=== PATIENT | female | born 1950 | race Caucasian/White ===

== ENCOUNTER → 2018-02-05 15:20 | Outpatient (CLI) | payer MEDICARE, SELFPAY ==
[2018-02-05 18:15] LABS: Anion Gap 9 (5-15); BUN 19 mg/dL (7-18); Calcium,Total 8.8 mg/dL (8.5-10.1); Chloride 105 mmol/L (98-107); Cholesterol 159 mg/dL (200); Creatinine, Serum 0.82 mg/dL (0.55-1.02); EST Glomerular Filtration Rate 73 mL/min (>60); Est Glom Filt Rate - Afr Amer 89 mL/min (>60); Glucose 132 mg/dL (74-106); High Density Lipoprotein 56 mg/dL; Sodium Level 140 mmol/L (136-145); Thyroid Stim Hormone (TSH) 4.71 uIU/mL (0.358-3.74); Triglycerides 169 mg/dL; Very Low Density Lipoprotein 34 mg/dL (5-40)
== END ==
PROVIDERS: Family Provider Family Medicine; PCP Family Medicine; Visit Provider Family Medicine
DX: I10 Essential (primary) hypertension (principal)
CPT/HCPCS: 36415; 80048; 80061; 84443

== ENCOUNTER 2020-06-20 07:57 | Emergency (ER) | payer MEDICARE, SELFPAY ==
[2020-06-20] VITALS (23 sets, daily range): BP systolic 105–227; BP diastolic 49–117; PULSE 74–115; RESP 18–23; TEMP 36.3; O2SAT 90–100; BMI 37.7
--- NOTE | 2020-06-20 08:00 | EKG12_ITS ---
Test Reason : STROKE Blood Pressure : / mmHG Vent. Rate : 077 BPM Atrial Rate : 077 BPM P-R Int : 128 ms QRS Dur : 104 ms QT Int : 410 ms P-R-T Axes : 065 -11 015 degrees QTc Int : 463 ms Normal sinus rhythm Normal ECG Confirmed by CHRISTA MCCORMICK, KRISTI ([id number]), department editor VELMA JOY ([id number]) on 06/22/2020 11:02:20 AM Referred By: JAKOB Confirmed By:KRISTI GOODWIN MD
--- NOTE | 2020-06-20 08:00 | CT_ITS ---
We are attempting to reach an attending provider to discuss findings. An addendum with communication details will be sent when the communication is complete. STUDY: CT HEAD STROKE PROTOCOL W/O CONTRAST INJECTION REASON FOR EXAM: Female, 69 years old. CVA -- LEFT SIDE DEFICIT, SLURRED SPEECH RADIATION DOSAGE (If Supplied By Facility): CTDIvol = ( 44.99 ) mGy, DLP = ( 796.11 ) mGycm TECHNIQUE: Transaxial CT imaging of the brain was performed without administration of intravenous contrast material. Individualized dose optimization techniques were used for this CT. COMPARISON: No relevant priors. FINDINGS: A CT scan of the head was performed without IV contrast. The chele medulla and cerebellum appear to be normal. The cerebral hemispheres were examined. There is a hemorrhagic infarct involving the right thalamus and the posterior aspect of the right lentiform nucleus. The intracerebral hematoma at this location crosses from the right thalamus across the posterior limb of the right internal capsule into the posterior lentiform nucleus and measures about 2 cm in maximal diameter. The edema surrounding this infarct is causing some mild compression of the third ventricle but at this point no hydrocephalus is identified. The iliotibial skull are intact. The frontal ethmoid maxillary and sphenoid sinuses are normal. This result was called to Dr. PEDROZA by Dr. MEZA about 8:10 AM on 06/20/2020 CT/STROKE Brain/Head without Cont IMPRESSION: A 2 cm hemorrhagic infarct is noted involving the right basal ganglia as described above. Electronically Signed: Suhas Meza, at 8:17 EST Tel , Service support ,
--- NOTE | 2020-06-20 08:06 | ED.DCSUM_ITS ---
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 She got back into bed and noticed tingling in the left side of her body. She then noticed that she could not move her left arm or leg. EMS was called. They note slurred speech. Patient denies any visual changes. She denies any symptoms on the right side of her body. She states she is not on any blood thinners. Blood pressure for EMS 196/87. Past Medical History - Allergies and Home Meds Allergies/Adverse Reactions: Allergies Penicillins Allergy (Verified 06/15/15 15:47) Hives SODIUM PENTOTHAL Allergy (Uncoded 06/15/15 15:47) Other Primary Care Physician: Shaan Sharpe MD [Primary Care Provider] - Past Medical History: - - HYPERTENSIOPN Surgical History: noncontributory Lives: Spouse/ Significant Other Smoking Status: Never smoker Drugs: None Review of Systems General: Denies: Chills, Fever, Sweats Eyes: Denies: Visual changes - bilaterally, Diplopia ENT: Denies: Rhinorrhea, Sore throat Cardiovascular: Denies: Chest pain, Palpitations Respiratory: Denies: Dyspnea, Cough, Dyspnea on exertion Gastrointestinal: Denies: Abdominal pain, Nausea, Vomiting, Diarrhea, Melena, Hematochezia Genitourinary: Denies: Dysuria, Hematuria, Frequency Musculoskeletal: Denies: Back pain, Extremity Pain Skin: Denies: Rash, Wounds Neurological: Reports: Headache, Weakness, Parasthesia, Numbness STROKE Inital Vital Signs reviewed: Yes - NIHSS Initial 1a Level of Consciousness: 0 1b LOC Questions (Score 2 if aphasic/stupor): 0 1c LOC Commands (Only score 1st attempt): 0 2 Best Gaze (If aphasic, use reflexive mvmts.): 0 3 Visual: 0 4 Facial Palsy: 1 5 Motor Arm Right (UN = amputation/fusion): 0 5 Motor Arm Left: UN 6 Motor Leg Right: 0 6 Motor Leg Left: UN 7 Limb ataxia (Only + if out of proportion): 0 8 Sensory (Aphasia/stupor=0 or 1, coma=2): 2 9 Best Language: 0 10 Dysarthria (mute, coma=2, intubated=UN): 2 11 Extinction and Inattention (only scored if +): 2 Total Score: 7 General: Well nourished, Well developed Head: Normocephalic, Atraumatic Eyes: Perrl, EOMI ENT: Moist mucous membranes, No rhinorrhea Neck: Supple, Nontender Cardiovascular: Regular rate, Regular rhythm, No murmurs Respiratory: No distress, CTA bilaterally, Chest nontender Abdomen: Soft, Nontender, Nondistended, Normal bowel sounds Back: Nontender, Normal Inspection Extremities: Nontender, No edema Skin: Normal color, No rash Neurological: Alert Psychological: Normal affect Diagnostic/Tx/Re-eval Clinical Impression(s) from Imaging Studies Brain CT 06/20/20 08:00 IMPRESSION: A 2 cm hemorrhagic infarct is noted involving the right basal ganglia as described above. Electronically Signed: Suhas Meza at 8:17 EST Tel , Service support , ADDENDUM: 06/20/20 0824 IMPRESSION: A 2 cm hemorrhagic infarct is noted involving the right basal ganglia as described above. N.B. : The above information has been verbally conveyed by Suhas Meza to MICHAEL, on 06/20/2020 08:17:52 (ET). Electronically Signed: Suhas Meza at 8:17 EST Tel , Service support , Chest X-Ray 06/20/20 08:45 IMPRESSION: 1. An endotracheal tube and NG tube noted in place in good position. 2. Apparent widening of the superior mediastinum. This is of uncertain etiology and could be due to suprahilar lymphadenopathy or a right suprahilar mass lesion and a CT scan of the chest with IV contrast is recommended for further evaluation. Electronically Signed: Shuas Meza at 9:10 EST Tel , Service support , Laboratory Last Values WBC 11.7 K/mm3 (4.4-11.0) H 06/20/20 08:05 RBC 4.99 M/mm3 (4.2-5.4) 06/20/20 08:05 Hgb 15.3 g/dL (12.0-15.0) H 06/20/20 08:05 Hct 45.5 % (37-47) 06/20/20 08:05 MCV 91.2 fL (81-99) 06/20/20 08:05 MCH 30.7 pg (27.0-32.0) 06/20/20 08:05 MCHC 33.6 g/dL (32-36) 06/20/20 08:05 RDW Std Deviation 41.4 fl (35.1-43.9) 06/20/20 08:05 RDW Coeff of Edi 12.6 % (11.6-14.6) 06/20/20 08:05 Plt Count 263 K/mm3 (150-450) 06/20/20 08:05 MPV 9.3 fl (6.2-12.0) 06/20/20 08:05 Immature Gran % (Auto) 0.400 % (0.0-0.9) 06/20/20 08:05 Neut % (Auto) 65.1 % (47-70) 06/20/20 08:05 Lymph % (Auto) 23.7 % (19-41) 06/20/20 08:05 Forrest % (Auto) 8.2 % (0-10) 06/20/20 08:05 Eos % (Auto) 2.0 % (0-5) 06/20/20 08:05 Baso % (Auto) 0.6 % (0-1) 06/20/20 08:05 Absolute Neuts (auto) 7.6 X10^3/uL (2.0-7.7) 06/20/20 08:05 Absolute Lymphs (auto) 2.77 X10^3/uL (0.83-4.51) 06/20/20 08:05 Nucleated RBC % 0 % (0-5) 06/20/20 08:05 PT 13.5 SECONDS (11.7-14.9) 06/20/20 08:05 INR 1.1 06/20/20 08:05 APTT 27.8 Seconds (24.1-36.2) 06/20/20 08:05 Sodium 139 mmol/L (136-145) 06/20/20 08:05 Potassium 3.8 mmol/L (3.5-5.1) 06/20/20 08:05 Chloride 106 mmol/L (98-107) 06/20/20 08:05 Carbon Dioxide 27.0 mmol/L (21.0-32.0) 06/20/20 08:05 Anion Gap 6 (5-15) 06/20/20 08:05 BUN 16 mg/dL (7-18) 06/20/20 08:05 Creatinine 0.90 mg/dL (0.55-1.02) 06/20/20 08:05 Estim Creat Clear Calc 55.23 ml/min 06/20/20 08:05 Est GFR (MDRD) Af Amer 80 mL/min (>60) 06/20/20 08:05 Est GFR (MDRD) Non-Af 66 mL/min (>60) 06/20/20 08:05 BUN/Creatinine Ratio 17.8 RATIO (10-20) 06/20/20 08:05 Glucose 270 mg/dL (74-106) H 06/20/20 08:05 Calcium 8.9 mg/dL (8.5-10.1) 06/20/20 08:05 Troponin I < 0.015 ng/mL (<0.045) 06/20/20 08:05 - Medical Decision Making Stroke Team Activated: Yes Reviewed Inclusion/Exclusion criteria: Yes Was Patient considered for Endovascular Intervention?: No IV Alteplase (t-PA) Administered: No No contraindications for IV Alteplase (t-PA) administration.: No - ICH Alteplase (t-PA) risks, benefits, alternative discussed: No I personally met the ambulance in the ambulance bay. Patient was taken directly to the CT scan where a 2 cm hemorrhagic infarct involving the right basal ganglia was noted. Patient was brought back to the room. His blood pressure increased to approximately 240 systolic. She was placed on a nicardipine drip. I spoke with [facility] was accepted. We looked into flying the patient there but due to incoming weather they were unable to fly. I called [facility] and awaiting acceptance. In the interim the patient began to deteriorate. She is less alert. She has had vomiting. She is having to cough significantly to clear secretions in her throat. Because of this and the need for interhospital transport decision was made to intubate the patient for airway safety. Patient received 20 of etomidate and 100 mg succinylcholine. An 8-0 endotracheal tube was placed on the first attempt without any difficulty. Placement confirmed. The patient will be kept sedated on propofol. I spoke with the on-call neurosurgeon. I then got acceptance to the MICU. Helicopter has been called and we are awaiting their arrival. Nursing has been titrating the Cardene and propofol. Critical care time (excluding procedures): 30-74 minutes - 35 MINUTES ED Disposition - Plan for ED Patient: Disposition: [facility] Diagnosis: Acute intracranial hemorrhage, Respiratory failure requiring intubation
[2020-06-20] MEDS: Ondansetron 4 MG/2 ML Vial IV (08:09)
[2020-06-20 08:19] LABS: Absolute Lymphocyte Count 2.77 X10^3/uL (0.83-4.51); Absolute Neutrophil Count 7.6 X10^3/uL (2.0-7.7); Basophil# 0.07 X10^3/uL; Basophil% 0.6 % (0-1); Eosinophil# 0.23 X10^3/uL; Hematocrit 45.5 % (37-47); Hemoglobin 15.3 g/dL (12.0-15.0); Lymphocyte # 2.77 X10^3/ul (4.0); Lymphocyte % 23.7 % (19-41); Mean Corp Hgb Conc 33.6 g/dL (32-36); Mean Corpuscular Hgb 30.7 pg (27.0-32.0); Mean Corpuscular Volume 91.2 fL (81-99); Mean Platelet Vol. 9.3 fl (6.2-12.0); Monocyte# 0.96 X10^3/uL; Monocyte% 8.2 % (0-10); NRBC Flagged by Analyzer 0 % (0-5); Neutrophil # 7.61 X10^3/uL (2.7-7.7); Neutrophil % 65.1 % (47-70); Platelet Count 263 K/mm3 (150-450); RBC Distribution Width CV 12.6 % (11.6-14.6); RBC Distribution Width SD 41.4 fl (35.1-43.9); Red Blood Count 4.99 M/mm3 (4.2-5.4); White Blood Count 11.7 K/mm3 (4.4-11.0)
[2020-06-20] MEDS: Etomidate 20 MG/10 ML Vial IV (08:35)
[2020-06-20] MEDS: Succinylcholine Chloride 200 MG/10 ML Vial 100 MG IV (08:36)
[2020-06-20 08:39] LABS: Anion Gap 6 (5-15); BUN 16 mg/dL (7-18); BUN/Creat Ratio 17.8 RATIO (10-20); Calcium,Total 8.9 mg/dL (8.5-10.1); Chloride 106 mmol/L (98-107); EST Glomerular Filtration Rate 66 mL/min (>60); Est Glom Filt Rate - Afr Amer 80 mL/min (>60); Estimated Creatinine Clearance 55.23 ml/min; Glucose 270 mg/dL (74-106); Potassium 3.8 mmol/L (3.5-5.1); Sodium Level 139 mmol/L (136-145)
[2020-06-20] MEDS: Propofol 10MG/Ml 1,000 MG/100 ML Bottle 6.4 MG CONT INF (08:43)
--- NOTE | 2020-06-20 08:45 | RAD_ITS ---
EXAM DESCRIPTION: PORTABLE AP CHEST CLINICAL HISTORY: 69 years Female, ETT PLACEMENT ETT PLACEMENT COMPARISON: None FINDINGS: Endotracheal tube and NG tube are noted in place in good position. The rest of the thorax is intact. The heart appears to be within normal limits. There appears to be widening of the superior mediastinum particularly pronounced on the right. An adjacent pulmonary mass or lesion in the right suprahilar region cannot be completely excluded. For this reason a CT scan of the chest with IV contrast is recommended for additional evaluation.. The left lung is normal in the right lung base appear to be normal. RAD/CXR for Line Placement IMPRESSION: 1. An endotracheal tube and NG tube noted in place in good position. 2. Apparent widening of the superior mediastinum. This is of uncertain etiology and could be due to suprahilar lymphadenopathy or a right suprahilar mass lesion and a CT scan of the chest with IV contrast is recommended for further evaluation. Electronically Signed: Suhas Meza, at 9:10 EST Tel , Service support ,
--- NOTE | 2020-06-20 08:45 | RAD_ITS ---
INDICATION: OG PLACEMENT EXAMINATION/TECHNIQUE: X-RAY - XR Abdomen 1 View COMPARISON: Recent chest obtained on 06/20/2020 FINDINGS: An AP portable abdomen x-ray was performed showing an endotracheal tube in place and NG tube in place projecting over the body of the stomach. Only the superior half of the upper abdomen was evaluated which appears to be normal. RAD/Abdomen Single View IMPRESSION: An NG tube noted in place with its tip in the body of the stomach. Electronically Signed: Suhas Meza, at 10:00 EST Tel , Service support ,
[2020-06-20] MEDS: Midazolam 5 MG/ML Syringe IV (08:48)
--- NOTE | 2020-06-20 08:50 | NURSING ---
CALLED [facility]. PATIENT ACCEPTED AT [facility]
[2020-06-20 08:52] LABS: International Normalized Ratio 1.1; Prothrombin Time (Protime)PT. 13.5 SECONDS (11.7-14.9)
[2020-06-20 08:53] LABS: Partial Thromboplast Time 27.8 Seconds (24.1-36.2)
--- NOTE | 2020-06-20 08:58 | NURSING ---
[facility] ICU T2 [id number] NURSE TO NURSE [phone]
--- NOTE | 2020-06-20 09:26 | ED.RN ---
Per Dr. Sheets propofol increased Q5 min d/t agitation/restlessness.
--- NOTE | 2020-06-20 09:33 | NURSING ---
JULIETH BRUNO, CALLED. UPDATED THAT PATIENT IS GOING TO [facility]
== END 2020-06-20 09:43 | disposition short-term general hospital (02) ==
PROVIDERS: Emergency Provider Emergency Medicine; PCP Family Medicine
DX: I62.9 Nontraumatic intracranial hemorrhage, unspecified (principal); J96.90 Respiratory failure, unspecified, unspecified whether with hypoxia or hypercapnia; R47.81 Slurred speech; R20.2 Paresthesia of skin; I10 Essential (primary) hypertension; R29.707 NIHSS score 7
CPT/HCPCS: 31500; 31720; 51702; 70450; 71045; 74018; 80048; 84484; 85025; 85610; 85730; 87426; 93005; 94002; 96365; 96366; 96367; 96375; 99251; 99285; J7030; A4216; G0463; J0330; J2405

== ENCOUNTER 2020-07-03 18:06 | Inpatient (IN) | payer MEDICARE, MEDICAID, SELFPAY ==
[2020-06-20 09:07] VITALS: BMI 37.7
[2020-07-03 18:32] VITALS: BP 124/78; PULSE 67; RESP 17; TEMP 36.7; O2SAT 93
[2020-07-03 18:46] VITALS: BMI 38.9
[2020-07-03 18:52] VITALS: BMI 38.9
[2020-07-03 20:00] VITALS: BP 118/74; PULSE 59; RESP 18; TEMP 36.7; O2SAT 93
[2020-07-03 20:30] LABS: Bedside Glucose 136 mg/dL (70-110)
[2020-07-03] MEDS: Heparin Injection (Vial) 5,000 UNIT/ML VIAL 5000 UNIT SC (20:41)
[2020-07-03] MEDS: Acetaminophen 325 MG Tablet 650 MG PO (20:41)
[2020-07-03] MEDS: traZODone 100 MG Tablet PO (20:41)
[2020-07-03] MEDS: Atorvastatin Calcium 40 MG Tablet PO (20:41)
[2020-07-03] MEDS: MELATONIN 3 MG TABLET 6 MG PO (20:54)
[2020-07-03] MEDS: NYSTATIN 500,000 UNIT/5 ML UDC 500000 UNIT PO (20:54)
--- NOTE | 2020-07-04 00:14 | NURSING ---
staff to check on pt during rounds and found pts SPO2 at 87% on ra. O2 at 2l/m placed on pt and SPO2 increased to 95%, staff also observed pt to have 5-10 seconds of apnea as well
[2020-07-04] MEDS: Pantoprazole Sodium 40 MG Tablet PO (05:03)
[2020-07-04] MEDS: Acetaminophen 325 MG Tablet 650 MG PO (05:04)
[2020-07-04] MEDS: Heparin Injection (Vial) 5,000 UNIT/ML VIAL 5000 UNIT SC (05:04)
[2020-07-04 06:41] LABS: Bedside Glucose 102 mg/dL (70-110)
[2020-07-04 07:54] VITALS: BP 108/71; PULSE 64; RESP 18; TEMP 36.7; O2SAT 95
[2020-07-04] MEDS: amLODIPine 10 MG Tablet PO (07:56)
[2020-07-04] MEDS: Carvedilol 25 MG Tablet PO ×2 (07:56→17:51)
[2020-07-04] MEDS: Lisinopril 40 MG Tablet PO (07:56)
[2020-07-04] MEDS: hydroCHLOROthiazide 12.5mg 12.5 MG PO (07:56)
[2020-07-04] MEDS: NYSTATIN 500,000 UNIT/5 ML UDC 500000 UNIT PO ×2 (07:57→20:54)
[2020-07-04] MEDS: Insulin Lispro 100 UNIT/ML INSULN.PEN 6 UNIT SC ×3 (07:59→17:51)
--- NOTE | 2020-07-04 09:00 | PCM.HP.STD ---
Problem List (1) Hemorrhagic cerebrovascular accident (CVA) Status: Acute Comment: 06/20/2020 2.5 cm bleed in the right basal ganglia (2) Hypertension Status: Chronic (3) Hypothyroidism Status: Chronic Comment: not on any medication. She tells me she had a resection of a lump on her thyroid and is was benign. (4) Obesity (BMI 30-39.9) Status: Chronic (5) Dysphagia Status: Acute (6) Hemiparesis of left nondominant side Status: Acute Qualifiers: Hemiparesis etiology: late effect of cerebrovascular disease Cerebrovascular disease type: nontraumatic intracerebral hemorrhage Qualified Code(s): I69.154 - Hemiplegia and hemiparesis following nontraumatic intracerebral hemorrhage affecting left non-dominant side (7) Diabetes mellitus type 2 in obese Status: Chronic Comment: This is a new diagnosis. Hemoglobin A1c at [facility] was 10.2. (8) LUANNE (obstructive sleep apnea) Status: Suspected Comment: wears O2 at night at 2 LPM which was started at [facility] (9) Thrush Status: Acute History of Present Illness Date of Admission: 07/03/20 Chief Complaint: Physical debility secondary to hemorrhagic CVA on 06/20/2020 with left hemiparesis, dysphagia and dysarthria. Marimar Slaughter is a 69 year old F with a past medical history of hypertension, hypothyroidism and obesity who presented to the emergency department at [facility] on 06/20/2020 complaining of paresthesias of her left side followed by severe weakness of the left arm and leg. Blood pressure at the time EMS arrived was 196/87. Noncontrasted CT brain showed a 2 cm hemorrhagic infarct involving the right basal ganglia. She was transferred emergently to [facility] to be evaluated by neurosurgery. While at [facility] she was diagnosed with dyslipidemia and diabetes mellitus type 2. Diabetes is a new diagnosis and her hemoglobin A1c was 10.2. Her NIH at [facility] was 7 and upon arrival at [facility] her NIH was 8. She did not require neurosurgical intervention. she was transferred to [facility] acute inpt rehab on 07/03/20 for > 3 hours of therapy daily to restore her at or near her prior level of function/independence. She lives with her significant other in a two-story home plus basement. There are no steps to enter her home. Her bedroom is on the second floor. She has a walk-in shower with grab bars on the second floor. Prior to the CVA she was independent with self-care/ADLs and was driving. All records from [facility] were reviewed. The medication list was reviewed. Records were requested from Dr. Sharpe who is her primary care physician. She sees Dr. Sharpe once a year Echocardiogram done at [facility] showed a normal ejection fraction with no regional wall motion abnormalities and no significant valvular heart disease. It was a difficult study. She is on multiple agents for blood pressure control including amlodipine 10 mg daily, carvedilol 25 mg twice daily, lisinopril 40 mg daily and hydrochlorothiazide 12.5 mg daily. Occupational Therapy today reported difficulty arousing her. She received 100 mg of trazodone at at bedtime and Trazodone Past Medical History Past Medical History (Chronic Problems): Chronic Problems Hypertension (Chronic) Hypothyroidism (Chronic) not on any medication. She tells me she had a resection of a lump on her thyroid and is was benign. Obesity (BMI 30-39.9) (Chronic) Diabetes mellitus type 2 in obese (Chronic) This is a new diagnosis. Hemoglobin A1c at [facility] was 10.2. Allergies Penicillins Allergy (Verified 06/15/15 15:47) Hives SODIUM PENTOTHAL Allergy (Uncoded 06/15/15 15:47) Other Home Medications: Ambulatory Orders Medication Instructions Recorded Benazepril HCl 40 mg PO DAILY 06/15/15 Oxycodone HCl/Acetaminophen 1 - 2 tablet PO Q4H PRN PRN #20 06/15/15 [Percocet 5/325] tablet Amlodipine Besylate [Norvasc] 10 mg PO DAILY 07/03/20 Atorvastatin Calcium [Lipitor] 40 mg PO QHS 07/03/20 Carvedilol [Coreg] 25 mg PO BID 07/03/20 Heparin Sodium,Porcine/Pf [Heparin 5,000 unit SQ Q8 07/03/20 5 Unit/5 ml (1/ml) Syr] Hydrochlorothiazide 12.5 mg PO DAILY 07/03/20 Insulin Glargine,Hum.rec.anlog 25 unit SQ QHS 07/03/20 [Lantus] Insulin Lispro [Humalog] 6 unit SQ TID 07/03/20 Lisinopril 40 mg PO DAILY 07/03/20 Melatonin/Pyridoxine HCl (B6) 1 ea PO QHS 07/03/20 [Melatonin 3 mg Tablet] Pantoprazole Sodium [Protonix] 40 mg PO 0600 07/03/20 traZODone [Desyrel] 100 mg PO QHS 07/03/20 Surgical History: total knee arthroplasty - On the right, - - Resection of thyroid nodule, right carpal tunnel release Psychiatric History: No pertinent psych hx 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 Denies: Chills, Fever, Weight Change Eyes: Reports: Vision Change - when she opens her eyes she sees pink and purple. Denies: Eyelid Inflammation HEENT: Reports: Head Aches - occasional...this predates the CVA. Denies: Hearing Changes, Post Nasal Drip, Sinus Congestion, Sinus Drainage, Sore Throat Cardiovascular: Reports: - - denies being told she snores. She has never had a sleep study. Denies: Chest Pain, Claudication, Edema, Orthopnea, Palpitations, Paroxysmal Noc. Dyspnea Respiratory: Denies: Cough, Pleuritic Pain, Shortness of Breath, Shortness of breath at rest, Sputum production, Wheezing Gastrointestinal: Denies: Abdominal Pain, Diarrhea, Dyspepsia, Nausea, Vomiting Genitourinary: Denies: Dysuria Musculoskeletal: Denies: Joint Pain, Joint Tenderness Skin: Reports: Dryness. Denies: Jaundice, Pruritis, Rash, Skin Changes, Wounds Neurological: Reports: Balance problems, Change in Speech, Slurred speech. Denies: Confusion, Difficulty swallowing, Focal weakness, Incoordination, Numbness, Tingling, Tremor, Seizures Psychiatric: Denies: Anxiety, Depression, Homicidal Ideations, Suicidal Ideations Endocrine: Denies: Change in Body Habitus Hematologic/ Lymphatic: Denies: Easy Bruising, Easy Bleeding, Hx of blood clot VTE Information - Inpt Only VTE Present on Admission: No VTE Mechan Device Prophylaxis: Knee High DION Hose - pt refused VTE Pharm Prophylaxis ordered?: Yes Patient Problems: Active and Suspected Problems Hemorrhagic cerebrovascular accident (CVA) (Acute) 06/20/2020 2.5 cm bleed in the right basal ganglia Dysphagia (Acute) Hemiparesis of left nondominant side (Acute) LUANNE (obstructive sleep apnea) (Suspected) wears O2 at night at 2 LPM which was started at [facility] (Acute) - Physical Exam Vitals/I&O's: Vital Signs Temp Pulse Resp BP Pulse Ox 98.0 F 64 18 108/71 95 07/04/20 07:54 07/04/20 07:54 07/04/20 07:54 07/04/20 07:54 07/04/20 07:54 Oxygen Flow Rate (L/min) 2 Oxygen Delivery Method Nasal Cannula Weight: 234 lb Body Mass Index (BMI) 38.9 Finger Stick Blood Glucose 193 Intake and Output for Last 24 Hours 07/02/20 07/03/20 07/04/20 23:59 23:59 23:59 Intake Total / 100 / 100 Output Total Balance 59 100 / 100 General: Alert, Oriented x3, Cooperative, No apparent distress, Well developed, Well nourished HEENT: Atraumatic, EOMI, Normocephalic, - - Pupils are equal round reactive to light Oral: Dry Mucosa Neck: Supple, No JVD, Negative Carotid Bruits, Trachea Midline, - - Carotids have brisk upstroke with good pulse volume. Lungs: Clear to auscultation, Normal air movement, No rhonchi, No wheeze, No rales Cardiovascular: Regular rate, Regular Rhythm, Normal S1, Normal S2, No murmurs, No rub noted, No Gallop Abdomen: Bowel Sounds Present, Soft, Non Tender, Non-Distended, - - No guarding with palpation Extremities: No clubbing, No cyanosis, No edema, Capillary Refill Less than 3 Seconds, No Calf Tenderness Skin: No rashes, No breakdown Musculoskeletal: No Tenderness to Palpation of Joints or Extremities, No Muscle Wasting Neurological: - - see NIHSS in the A/P section Psych/Mental Status: Normal Affect, Appropriate Laboratory Results 07/03/20 20:24: POC Glucose 136 H 07/04/20 06:27: POC Glucose 102 Current Medications Acetaminophen (Acetaminophen 325 Mg Tablet) 650 mg PO Q4H PRN PRN PRN Reason: Pain 1-10 or Fever Last Admin: 07/04/20 05:04 Dose: 650 mg Documented by: Amlodipine Besylate (Amlodipine 10 Mg Tablet) 10 mg PO DAILY [facility] Last Admin: 07/04/20 07:56 Dose: 10 mg Documented by: Atorvastatin Calcium (Atorvastatin Calcium 40 Mg Tablet) 40 mg PO QHS [facility] Last Admin: 07/03/20 20:41 Dose: 40 mg Documented by: Bisacodyl (Bisacodyl 10 Mg Suppository) 10 mg RECTAL .PRN X 1 PRN PRN Reason: Constipation Carvedilol (Carvedilol 25 Mg Tablet) 25 mg PO BIDCM [facility] Last Admin: 07/04/20 07:56 Dose: 25 mg Documented by: Heparin Sodium (Porcine) (Heparin Injection (Vial) 5,000 Unit/Ml Vial) 5,000 unit SC Q8 [facility] Last Admin: 07/04/20 05:04 Dose: 5,000 unit Documented by: Hydrochlorothiazide (Hydrochlorothiazide 12.5mg) 12.5 mg PO DAILY [facility] Last Admin: 07/04/20 07:56 Dose: 12.5 mg Documented by: Insulin Glargine (Insulin Glargine 100 Units/Ml Pen) 25 units SC QHS [facility] Last Admin: 07/03/20 20:42 Dose: 25 u Documented by: Insulin Human Lispro (Insulin Lispro 100 Unit/Ml Insuln.Pen) 6 unit SC TIDCM [facility] Last Admin: 07/04/20 07:59 Dose: 6 u Documented by: Lisinopril (Lisinopril 40 Mg Tablet) 40 mg PO DAILY [facility] Last Admin: 07/04/20 07:56 Dose: 40 mg Documented by: Magnesium Hydroxide (Magnesium Hydroxide 30 Ml Udc) 30 ml PO .PRN X 1 PRN PRN Reason: Constipation Melatonin (Melatonin 3 Mg Tablet) 6 mg PO QHS [facility] Last Admin: 07/03/20 20:54 Dose: 6 mg Documented by: Non-Formulary Medication (Insulin Lispro) 0 - 6 unit SQ TID [facility] Nystatin (Nystatin 500,000 Unit/5 Ml Udc) 500,000 unit PO BID [facility] Last Admin: 07/04/20 07:57 Dose: 500,000 unit Documented by: Pantoprazole Sodium (Pantoprazole Sodium 40 Mg Tablet) 40 mg PO 0600 [facility] Last Admin: 07/04/20 05:03 Dose: 40 mg Documented by: Trazodone HCl (Trazodone 100 Mg Tablet) 100 mg PO QHS [facility] Last Admin: 07/03/20 20:41 Dose: 100 mg Documented by: Assessment/Plan All Active Problems Hemorrhagic cerebrovascular accident (CVA) (Acute) Dysphagia (Acute) Hemiparesis of left nondominant side (Acute) Thrush (Acute) Impressions 1. Physical debility secondary to hemorrhagic right basal ganglion CVA on 06/20/2020 with dysphagia, dysarthria, left hemiparesis. 2. Diabetes mellitus type 2 in obese-this is a new diagnosis for this patient 3. Hypertension 4. History of hypothyroidism -not on supplements 5. Morbid obesity 6. Dyslipidemia 7. Hypocalcemia 8. Thrush 9. Sleep disordered breathing? on oxygen at night. she denies ever having had a sleep study. STOP BANG score puts her at high risk for LUANNE 10. Left hemiparesis with left side neglect 11. Dysphagia - SEVERE 12. Dysarthria 13. Insomnia-on trazodone and melatonin 14. Suspected depression PLAN PT for gait stability OT for ADL's ST for evaluation Analgesics as needed Bowel protocol Fall precautions Assess for Anxiety/Depression GI prophylaxis with pantoprazole 40 mg p.o. daily DVT prophylaxis with enoxaparin 40 mg subcu daily Follow up with PCP and neurology following DC from IP Rehab AM lab including CMP, CBC, Mag, lipid panel and Phos DC the HCTZ - oral intake is poor and she is on pudding thick liquids. Decrease trazodone to 50 mg nightly and give this medication at 9 PM-very drowsy and difficult to arouse this a.m. Continue Lantus 25 units nightly and 6 units of Humalog 3 times daily centimeters. Add sliding scale insulin-low medium scale. Nystatin 500,000 units twice daily for thrush. DC subcutaneous heparin 5000 units every 8 hours and start Lovenox 40 mg subcu daily. Apply DION hose every morning and remove at at bedtime Check a UA looking for proteinuria. Check microalbumin/creatinine ratio 1. LOC Alert: 0 2. LOC/Orientation: 0 3. LOC Commands: 0 4. Horizontal extraocular movements : 0 5. Visual angulo: 0 6. Facial Paresis: +1 7. Dysarthria: 0 8. Best Language/aphasia: 0 9. Motor Left ARM : +4 10. Motor Left LEG: +4 11. Motor Right ARM: 0 12. Motor Right leg LE 13. Limb ataxia: 0 14. Sensory: +2 cannot feel me touch her at all on the left leg or left arm 15. Neglect: +1 NIHSS score -12 Modified Esmeralda score - 5 at presentation to rehab Inpatient E&M: 58416 Init Hosp L3
[2020-07-04 10:00] VITALS: BP 108/71; PULSE 57; RESP 18; TEMP 36.7; O2SAT 95
[2020-07-04 10:10] LABS: Bedside Glucose 136 mg/dL (70-110)
--- NOTE | 2020-07-04 10:15 | REHABEVAL_ITS ---
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 Status Changes from Prescreening?: No changes Identified Actual Problem List:: Aspiration, Falls, Skin Intergrity, Cognitve Impr/Memory Loss, Alteration in Sleep, Mobility Impaired, Self Care Deficit, Know.Dfct/Disease Process, Diabetes, Hyperglycemia, BP, Hypertension, Fluid Change-Dehydration, Alteration-Leisure Activ. Potential Problem List:: DVT, Bleeding, Infection, UTI, Aspiration, Falls, Skin Integrity, Depression Risk of Complications DVT: LMWH, DION Hose - Patient refuses DION hose Bleeding: Monitor Lab Values, Nursing to Teach Precautions for anti-coagulation therapy., Wound, if applicable, to be assessed every shift., Stroke patients assessed for lethargy or change in status. Infection: Clinical Staff to Monitor for S/S of infection:, S/S of infection include fever, redness, warmth, etc. Urinary Tract Infection: Monitor for frequency, burning, discomfort, or incontinence., Nursing will obtain urine sample for urinalysis and C&S when ordered. Aspiration: Clinical staff will monitor for coughing, drooling, congestion., Speech will evaluate swallowing and dsyphasia., Nursing will monitor patient swallowing during meals. Falls: Patient will be evaluated for Fall Precautions, Patient will be placed on Fall Precautions as indicated per protocol. Skin Breakdown: Nursing will assess skin daily using assessment tool., Nursing will place on Skin Breakdown Precautions as indicated. Pain: Clinical staff will assess patient's pain level per protocol., Medications will be given, if needed, and the pain level reassessed., Other methods: Massage, distraction, decrease stimulus, etc. used PRN. Plan of Care Patient requires physician specializing in physical medicine and rehab oversight to provide close medical supervision of rehab issues including: Pain Management, Sleep Problems, Bowel and Bladder, Medical and co-morbidity Management, DVT prophylaxis, Rehabilitation Leadership, Coordination of treatment team Patient needs Physical Therapy: For a minimum of 1 hour, At least 5 out of 7 days Patient needs Physical Therapy to improve:: Mobility, Mobility, Mobility, Strengthening, Transfers, Stretching, ROM, Endurance, Stairs, Gait, Balance Patient needs Occupational Therapy: For a minimum of 1 hour, At least 5 out of 7 days Patient needs Occupational Therapy to improve ADL's incl.: Eating, Grooming, Bathing, Dressing, Toileting, Toilet transfers, Community Reintegration, Higher functioning activities, Household tasks, Adaptive Equipment, Splinting, Other activities as determined Patient requires speech therapy: For a minimum of 1 hour, At least 5 out of 7 days Patient requires speech therapy for: Swallowing, Cognition, Language Skills, Compensatory Strategies Patient requires 24/ Rehabilitation Nursing for: Pain Issues, Identifying and preventing risk factors, Monitoring and reporting current medical conditions, Assisting with ambulation, transfer, and all ADL's, Teaching patients about disease process and medications, Family teaching, Providing safe environment, Bowel and Bladder Issues, Skin integrity, Medication Management Patient needs Back End Architect/ Case Management for: Discharge Planning, Arranging Home Equipment or Services, Family Interventions Patient needs Dietary and Nutrition Services for: Adequate Nutrition, Nutritional Supplements, Nutritional Education Goals Patient will remain: free from falls, or injury at time of discharge. Patient will perform bed mobility at: MOD I level of assist. Patient will complete transfers from bed to chair at: MOD I level of assist. Patient will ambulate: 100 feet, with MOD I assist, with LRD Patient will complete upper body dressing at: MOD I level of assist. Patient will complete lower body dressing at: MOD I level of assist. Patient will complete toileting at: MOD I level of assist. Patient will perform bathing at: MOD I level of assist. Patient will complete grooming at: MOD I level of assist. Patient will complete home management skills at: MOD I level of assist. Patient will achieve: 12 stairs, at MOD I assist Patient will have pain level of: of 3 or less Patient's skin will: remain intact, free from infection. Patient will receive: adequate nutrition. Discharge Planning Pt Prognosis for Sig. Practical Improv. w/in Reasonable Time: Good Anticipated D/C Destination: Home with Home Health Was Preadmission Assessment Accurate?: Yes
--- NOTE | 2020-07-04 10:33 | NURSING ---
neck circumference measured per dr aleman request. neck measures 44 cm.
[2020-07-04 11:56] LABS: Bedside Glucose 119 mg/dL (70-110)
[2020-07-04 12:59] LABS: Bacteria 0 SEEN /hpf (None Seen); Mucous, Urine 0 SEEN /hpf (<or=2+); White Blood Cells 0 SEEN /hpf (0-5)
[2020-07-04] MEDS: 0.9% Normal Saline 1,000 ML 100 ML IV ×2 (13:02→23:26)
[2020-07-04 13:05] LABS: Color, Urine Yellow (Yellow); Glucose, Dipstick Normal (Normal); Ketone-Dipstick Negative (Negative); Leukocyte Esterase-Dipstick Negative /ul (Negative); Nitrite-Dipstick Negative (Negative); Occult Blood-Urine 150 /ul (Negative); Protein-Dipstick Negative (Negative); Urine Bilirubin Dipstick Negative (Negative); Urine Clarity Clear (Clear); Urine Urobilinogen 4 mg/dl (Normal)
[2020-07-04 13:11] LABS: Red Blood Cells-Urine 10-25 SEEN /hpf (0-5); Squamous Epithelial Cells - UA 0-5 SEEN /hpf (5-10)
[2020-07-04 13:12] LABS: Protein, Urine (Random) 12.9 mg/dL (<11.9); Protein:Creat Ratio 143 mg/g CRE (0-200)
[2020-07-04 15:05] VITALS: BMI 38.9
--- NOTE | 2020-07-04 16:11 | CASEMGMT ---
Social Work Completed PHQ-9, score 14/27. Symptoms since CVA. Dr. villasenor. Provided stroke support group information. Jennyfer Fallon, BATCHMAKER WHEAT WASHER
[2020-07-04 17:00] LABS: Bedside Glucose 154 mg/dL (70-110)
[2020-07-04] MEDS: Insulin Lispro 100 UNIT/ML INSULN.PEN SC (17:51)
[2020-07-04] MEDS: Atorvastatin Calcium 40 MG Tablet PO (20:53)
[2020-07-04] MEDS: traZODone 50 MG Tablet PO (20:53)
[2020-07-04] MEDS: MELATONIN 3 MG TABLET 6 MG PO (20:54)
[2020-07-04 21:06] LABS: Bedside Glucose 158 mg/dL (70-110)
[2020-07-04 21:45] VITALS: PULSE 58; O2SAT 92
[2020-07-04 22:00] VITALS: BP 116/71; PULSE 68; RESP 20; TEMP 36.3; O2SAT 96
[2020-07-05] MEDS: Acetaminophen 325 MG Tablet 650 MG PO ×2 (00:54→22:36)
[2020-07-05] MEDS: Enoxaparin 40 MG/0.4 ML Syringe SC (04:24)
[2020-07-05] MEDS: Pantoprazole Sodium 40 MG Tablet PO (04:24)
[2020-07-05 05:23] LABS: Hematocrit 41.1 % (37-47); Hemoglobin 13.1 g/dL (12.0-15.0); Mean Corp Hgb Conc 31.9 g/dL (32-36); Mean Corpuscular Hgb 29.8 pg (27.0-32.0); Mean Corpuscular Volume 93.4 fL (81-99); Mean Platelet Vol. 9.6 fl (6.2-12.0); Platelet Count 188 K/mm3 (150-450); RBC Distribution Width CV 13.4 % (11.6-14.6); RBC Distribution Width SD 45.3 fl (35.1-43.9)
[2020-07-05 05:48] LABS: ALB/GLOB Ratio 0.8 RATIO (0.9-2.4); AST(SGOT) 17 U/L (15-37); Alanine Aminotransfer ALT/SGPT 22 U/L (13-56); Albumin, Serum 2.6 g/dL (3.2-5.0); Alkaline Phosphatase 72 U/L (45-117); Anion Gap 5 (5-15); BUN 15 mg/dL (7-18); Calcium,Total 7.9 mg/dL (8.5-10.1); Chloride 105 mmol/L (98-107); Cholesterol 95 mg/dL (200); Creatinine, Serum 0.79 mg/dL (0.55-1.02); EST Glomerular Filtration Rate 77 mL/min (>60); Est Glom Filt Rate - Afr Amer 93 mL/min (>60); Estimated Creatinine Clearance 47.78 ml/min; Globulin 3.3 g/dL (2.2-4.2); Glucose 94 mg/dL (74-106); High Density Lipoprotein 43 mg/dL; Phosphorus 3.5 mg/dL (2.5-4.9); Potassium 3.1 mmol/L (3.5-5.1); Protein, Total 5.9 g/dL (6.4-8.2); Sodium Level 139 mmol/L (136-145); T4 Free Direct 1.33 ng/dL (0.76-1.46); Thyroid Stim Hormone (TSH) 2.58 uIU/mL (0.358-3.74); Triglycerides 130 mg/dL; Very Low Density Lipoprotein 26 mg/dL (5-40)
[2020-07-05 06:45] LABS: Bedside Glucose 104 mg/dL (70-110)
[2020-07-05 07:15] VITALS: O2SAT 95
[2020-07-05] MEDS: Carvedilol 25 MG Tablet PO ×2 (08:30→16:38)
[2020-07-05] MEDS: Insulin Lispro 100 UNIT/ML INSULN.PEN 6 UNIT SC (08:30)
[2020-07-05] MEDS: amLODIPine 10 MG Tablet PO (08:32)
[2020-07-05] MEDS: NYSTATIN 500,000 UNIT/5 ML UDC 500000 UNIT PO ×2 (08:32→22:35)
[2020-07-05] MEDS: Lisinopril 40 MG Tablet PO (08:32)
[2020-07-05] MEDS: 0.9% Normal Saline 1,000 ML 100 ML IV (09:46)
--- NOTE | 2020-07-05 09:52 | CASEMGMT ---
Social Work IDT met with patient and daughter via conference call for Team meeting. Discussed patient's progress in therapy. Pt is x2 assist for tx, maxA standing for 30 seconds in // bars, dependent for ADLs, left side flaccid. ST has pt on puree, pudding thick liquids. MBS showed silent aspiration, trial FFWP. Pt is not sleeping well. Receiving IV fluids. suspects LUANNE. started pt on antidepressant. Dtr reports depressive symptoms prior to stroke but pt continues to deny. Explained O insurance NRD 07/05 and continued stay is not guaranteed. 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 Children now assisting at home. Dtr is working on Medicaid for pt and to transition to [facility]. Spoke with [facility] to confirm. They can accept. Will send clinical updates throughout stay. Will ReTeam next week. Will continue to follow. Jennyfer Fallon, BIJAL PUBLIC HEALTH DOCTOR
[2020-07-05 10:00] VITALS: BP 131/53; PULSE 66; RESP 18; TEMP 36.7; O2SAT 94
[2020-07-05 11:43] VITALS: BMI 38.9
[2020-07-05 11:56] LABS: Bedside Glucose 136 mg/dL (70-110)
[2020-07-05 18:35] LABS: Bedside Glucose 153 mg/dL (70-110)
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
[2020-07-05 19:18] VITALS: BP 128/78; PULSE 72; RESP 16; TEMP 37.3; O2SAT 98
[2020-07-05 22:05] LABS: Bedside Glucose 125 mg/dL (70-110)
[2020-07-05] MEDS: Atorvastatin Calcium 40 MG Tablet PO (22:35)
[2020-07-05] MEDS: MELATONIN 3 MG TABLET 6 MG PO (22:35)
[2020-07-05] MEDS: traZODone 50 MG Tablet PO (22:36)
[2020-07-06] MEDS: Enoxaparin 40 MG/0.4 ML Syringe SC (04:38)
[2020-07-06] MEDS: Pantoprazole Sodium 40 MG Tablet PO (04:44)
[2020-07-06 07:05] LABS: Bedside Glucose 113 mg/dL (70-110)
[2020-07-06 07:27] VITALS: O2SAT 97
[2020-07-06 07:28] VITALS: O2SAT 95
[2020-07-06] MEDS: amLODIPine 10 MG Tablet PO (08:38)
[2020-07-06] MEDS: Carvedilol 25 MG Tablet PO ×2 (08:38→16:41)
[2020-07-06] MEDS: NYSTATIN 500,000 UNIT/5 ML UDC 500000 UNIT PO ×2 (08:38→19:35)
[2020-07-06] MEDS: Lisinopril 40 MG Tablet PO (08:38)
[2020-07-06] MEDS: Sertraline 50 MG Tablet 25 MG PO (08:39)
[2020-07-06] MEDS: Acetaminophen 325 MG Tablet 650 MG PO ×2 (08:41→19:36)
[2020-07-06 08:45] VITALS: BP 124/66; PULSE 62; RESP 20; TEMP 36.7; O2SAT 93
--- NOTE | 2020-07-06 09:27 | PCM.PN.BLA ---
Progress Note Afebrile VSS Maintaining appropriate oxygen saturation on RA while awake. She is on 2 L of nasal O2 at night due to abnormal overnight trending pulse ox with sleep disordered breathing. Oral intake is improving. She ate 100% of her breakfast this morning. She coughs when drinking water on the [place] protocol but likes having something to drink that is thin. She is incontinent of urine. She had 3 loose bowel movements yesterday. She is sometimes incontinent of stool. Discussed with nursing - no problems that need addressed Reviewed the PT/OT/ST notes Medication list reviewed. Blood sugar record was reviewed and the blood sugars are under good control. She is now getting sliding scale insulin 3 times daily AC rather than scheduled insulin. Her intake at meals is inconsistent. No hypoglycemia. She received only 6 units of short acting insulin yesterday and that was in the AM. Fasting blood sugar this morning is 113. Tracie tells me that she slept better last night and I attribute this to the oxygen. She denies cough except when she is drinking water on the Bu[place]rostro protocol. She told me she ate 100% of her breakfast today. She denies nausea, abdominal pain, chest pain, shortness of breath. She has no lightheadedness. She denies palpitations. More alert today, pleasant, has her lipstick on today. Lungs-clear to auscultation Heart-regular rate and rhythm, no gallop Abdomen-soft, nontender to palpation, bowel sounds present and not hyperactive No peripheral edema, no calf tenderness Less facial droop on the left today. Impressions 1. Post stroke debility with severe left hemiparesis and severe dysphagia 2. Diabetes mellitus type 2-good control 3. [id number] 4. Hypokalemia 5. History of vitamin D deficiency Follow-up lab ordered for 07/08/2020 Continue therapy Continue 4 times daily blood sugars with sliding scale insulin 3 times daily AC. When her oral intake is more consistent we will place her on scheduled mealtime insulin or consider twice daily dosing of Humalog 75/25. STROKE Vital Signs/Narrative: Vital Signs Temp Pulse Resp BP Pulse Ox 07/06/20 08:45 98.0 F 62 20 H 124/66 H 93 07/06/20 07:28 95 07/06/20 07:27 97 Inpatient E&M: 97739 Subs Hosp L2
[2020-07-06 12:50] LABS: Bedside Glucose 182 mg/dL (70-110)
[2020-07-06] MEDS: Insulin Lispro 100 UNIT/ML INSULN.PEN SC (12:57)
[2020-07-06 14:15] VITALS: BMI 38.9
[2020-07-06 17:11] LABS: Bedside Glucose 133 mg/dL (70-110)
[2020-07-06] MEDS: traZODone 50 MG Tablet PO (19:35)
[2020-07-06] MEDS: Atorvastatin Calcium 40 MG Tablet PO (19:35)
[2020-07-06] MEDS: MELATONIN 3 MG TABLET 6 MG PO (19:35)
[2020-07-06 19:47] VITALS: BP 137/86; PULSE 55; RESP 16; TEMP 36.7; O2SAT 96
[2020-07-06 21:51] LABS: Bedside Glucose 164 mg/dL (70-110)
[2020-07-06 22:00] VITALS: PULSE 55; RESP 16; O2SAT 96
[2020-07-07] MEDS: Enoxaparin 40 MG/0.4 ML Syringe SC (05:06)
[2020-07-07] MEDS: Pantoprazole Sodium 40 MG Tablet PO (05:07)
[2020-07-07 06:56] LABS: Bedside Glucose 125 mg/dL (70-110)
[2020-07-07 07:30] VITALS: BP 128/61; PULSE 54; RESP 18; TEMP 36.7; O2SAT 92
[2020-07-07] MEDS: Sertraline 50 MG Tablet 25 MG PO (07:45)
[2020-07-07] MEDS: Lisinopril 40 MG Tablet PO (07:45)
[2020-07-07] MEDS: Carvedilol 25 MG Tablet PO ×2 (07:45→17:03)
[2020-07-07] MEDS: amLODIPine 10 MG Tablet PO (07:45)
[2020-07-07] MEDS: NYSTATIN 500,000 UNIT/5 ML UDC 500000 UNIT PO ×2 (08:29→20:08)
[2020-07-07] MEDS: Acetaminophen 325 MG Tablet 650 MG PO ×2 (10:40→17:04)
[2020-07-07 12:15] LABS: Bedside Glucose 166 mg/dL (70-110)
[2020-07-07] MEDS: Insulin Lispro 100 UNIT/ML INSULN.PEN SC (13:04)
[2020-07-07 16:31] VITALS: BMI 38.9
[2020-07-07 17:41] LABS: Bedside Glucose 127 mg/dL (70-110)
[2020-07-07 19:16] VITALS: BP 150/74; PULSE 58; RESP 16; TEMP 36.7; O2SAT 96
[2020-07-07] MEDS: MELATONIN 3 MG TABLET 6 MG PO (20:08)
[2020-07-07] MEDS: traZODone 50 MG Tablet PO (20:09)
[2020-07-07] MEDS: Atorvastatin Calcium 40 MG Tablet PO (20:09)
[2020-07-07 20:41] LABS: Bedside Glucose 176 mg/dL (70-110)
[2020-07-08] MEDS: Enoxaparin 40 MG/0.4 ML Syringe SC (04:56)
[2020-07-08] MEDS: Pantoprazole Sodium 40 MG Tablet PO (04:56)
[2020-07-08 05:21] LABS: Anion Gap 5 (5-15); BUN 11 mg/dL (7-18); BUN/Creat Ratio 16.2 RATIO (10-20); Chloride 109 mmol/L (98-107); Creatinine, Serum 0.68 mg/dL (0.55-1.02); EST Glomerular Filtration Rate 91 mL/min (>60); Est Glom Filt Rate - Afr Amer 111 mL/min (>60); Estimated Creatinine Clearance 47.78 ml/min; Glucose 100 mg/dL (74-106); Potassium 3.5 mmol/L (3.5-5.1); Sodium Level 141 mmol/L (136-145)
[2020-07-08 07:00] LABS: Bedside Glucose 104 mg/dL (70-110)
[2020-07-08 07:30] VITALS: BP 147/85; PULSE 64; RESP 15; TEMP 36.8; O2SAT 95
[2020-07-08] MEDS: Carvedilol 25 MG Tablet PO ×2 (08:27→18:01)
[2020-07-08] MEDS: amLODIPine 10 MG Tablet PO (08:27)
[2020-07-08] MEDS: Sertraline 50 MG Tablet 25 MG PO (08:27)
[2020-07-08] MEDS: NYSTATIN 500,000 UNIT/5 ML UDC 500000 UNIT PO ×2 (08:28→21:51)
[2020-07-08] MEDS: Lisinopril 40 MG Tablet PO (08:28)
[2020-07-08] MEDS: Acetaminophen 325 MG Tablet 650 MG PO ×2 (10:07→21:50)
[2020-07-08 11:51] LABS: Bedside Glucose 173 mg/dL (70-110)
[2020-07-08] MEDS: Insulin Lispro 100 UNIT/ML INSULN.PEN SC (12:05)
[2020-07-08 14:40] VITALS: BMI 38.9
[2020-07-08 16:46] LABS: Bedside Glucose 131 mg/dL (70-110)
[2020-07-08 19:22] VITALS: BP 148/78; PULSE 61; RESP 17; TEMP 36.6; O2SAT 96
[2020-07-08] MEDS: Atorvastatin Calcium 40 MG Tablet PO (21:51)
[2020-07-08] MEDS: MELATONIN 3 MG TABLET 6 MG PO (21:51)
[2020-07-08] MEDS: traZODone 50 MG Tablet PO (21:51)
[2020-07-08 23:16] LABS: Bedside Glucose 128 mg/dL (70-110)
[2020-07-09] MEDS: Acetaminophen 325 MG Tablet 650 MG PO ×4 (01:39→20:44)
[2020-07-09 06:40] LABS: Bedside Glucose 98 mg/dL (70-110)
[2020-07-09] MEDS: Enoxaparin 40 MG/0.4 ML Syringe SC (06:45)
[2020-07-09] MEDS: Pantoprazole Sodium 40 MG Tablet PO (06:45)
[2020-07-09 07:29] VITALS: BP 134/73; PULSE 54; RESP 18; TEMP 36.6; O2SAT 95
[2020-07-09] MEDS: amLODIPine 10 MG Tablet PO (07:47)
[2020-07-09] MEDS: Lisinopril 40 MG Tablet PO (07:47)
[2020-07-09] MEDS: NYSTATIN 500,000 UNIT/5 ML UDC 500000 UNIT PO ×2 (07:47→20:49)
[2020-07-09] MEDS: Carvedilol 25 MG Tablet PO ×2 (07:47→16:03)
[2020-07-09] MEDS: Sertraline 50 MG Tablet 25 MG PO (07:48)
[2020-07-09 08:33] LABS: Vitamin D,25 Hydroxy 15.6 ng/mL
--- NOTE | 2020-07-09 08:52 | PN_ITS ---
Patient Problems: Active and Suspected Problems Hemorrhagic cerebrovascular accident (CVA) (Acute) 06/20/2020 2.5 cm bleed in the right basal ganglia Dysphagia (Acute) Hemiparesis of left nondominant side (Acute) LUANNE (obstructive sleep apnea) (Suspected) wears O2 at night at 2 LPM which was started at [facility] (Acute) Subjective: Afebrile VSS-blood pressure is almost always at goal. Increase systolic blood pressure up to 150. Maintaining appropriate oxygen saturation on RA while awake. She is on 2 L of nasal O2 at night due to sleep disordered breathing with significant desaturations less than 90% while sleeping. Fluid intake is poor due to dysphagia. Continues to be incontinent of urine. Last bowel movement was on 07/06/2020. Patient is hesitant to take stool softeners because she had loose stool at admission. Discussed with nursing - no problems that need addressed Reviewed the PT/OT/ST notes Medication list reviewed. Blood sugar record was reviewed.-Blood sugars are in good control with no hypoglycemia on Lantus 25 units nightly. Rarely 1 unit is given at mealtime. All lab from 07/08/2020 was reviewed. Potassium is 3.5. BUN is 11 with a creatinine of 0.68 which is stable. Vitamin D level is low at 15.6. Calcium corrected for hypoalbuminemia is normal. She denies CP, SOB, lightheadedness, N/V, abd pain - Physical Exam Vitals/I&O's: Vital Signs Temp Pulse Resp BP Pulse Ox 97.8 F 54 L 18 134/73 H 95 07/09/20 07:29 07/09/20 07:29 07/09/20 07:29 07/09/20 07:29 07/09/20 07:29 Oxygen Flow Rate (L/min) 2 Oxygen Delivery Method Room Air Weight: 216 lb 12.806 oz Body Mass Index (BMI) 38.9 Finger Stick Blood Glucose 193 Intake and Output for Last 24 Hours 07/07/20 07/08/20 07/09/20 23:59 23:59 23:59 Intake Total 720 / 720 1000 / 1000 200 / 200 Output Total 400 / 400 Balance 320 / 320 1000 / 1000 200 / 200 General: Alert, Oriented x3, Cooperative, No apparent distress HEENT: - - L facial droop Oral: Dry Mucosa Neck: Supple Lungs: Clear to auscultation, No rhonchi, No wheeze, No rales Cardiovascular: Regular rate, Regular Rhythm, Normal S1, Normal S2, No Gallop Abdomen: Bowel Sounds Present, Soft, Non Tender, Non-Distended Extremities: No edema Skin: No rashes, No breakdown Neurological: - - please see the therapy notes. Less dysarthria. Moving the LUE with table glides forward and backward and side to side. No PT note for today yet. Psych/Mental Status: Appropriate - she is cooperative and trying hard because she wants to go home Laboratory Results 07/08/20 04:52: Vitamin D 25-Hydroxy 15.6 07/08/20 11:45: POC Glucose 173 H 07/08/20 16:29: POC Glucose 131 H 07/08/20 21:06: POC Glucose 128 H 07/09/20 06:36: POC Glucose 98 Current Medications Acetaminophen (Acetaminophen 325 Mg Tablet) 650 mg PO Q4H PRN PRN PRN Reason: Pain 1-10 or Fever Last Admin: 07/09/20 06:50 Dose: 650 mg Documented by: Amlodipine Besylate (Amlodipine 10 Mg Tablet) 10 mg PO DAILY [facility] Last Admin: 07/09/20 07:47 Dose: 10 mg Documented by: Atorvastatin Calcium (Atorvastatin Calcium 40 Mg Tablet) 40 mg PO QHS [facility] Last Admin: 07/08/20 21:51 Dose: 40 mg Documented by: Bisacodyl (Bisacodyl 10 Mg Suppository) 10 mg RECTAL .PRN X 1 PRN PRN Reason: Constipation Carvedilol (Carvedilol 25 Mg Tablet) 25 mg PO BIDCM [facility] Last Admin: 07/09/20 07:47 Dose: 25 mg Documented by: Enoxaparin Sodium (Enoxaparin 40 Mg/0.4 Ml Syringe) 40 mg SC DAILY@0600 [facility] Last Admin: 07/09/20 06:45 Dose: 40 mg Documented by: Insulin Glargine (Insulin Glargine 100 Units/Ml Pen) 25 units SC QHS [facility] Last Admin: 07/08/20 21:52 Dose: 25 u Documented by: Insulin Human Lispro (Insulin Lispro 100 Unit/Ml Insuln.Pen) 0 unit SC TIDAC [facility]; Protocol Last Admin: 07/09/20 07:44 Dose: Not Given Documented by: Lisinopril (Lisinopril 40 Mg Tablet) 40 mg PO DAILY [facility] Last Admin: 07/09/20 07:47 Dose: 40 mg Documented by: Magnesium Hydroxide (Magnesium Hydroxide 30 Ml Udc) 30 ml PO .PRN X 1 PRN PRN Reason: Constipation Melatonin (Melatonin 3 Mg Tablet) 6 mg PO QHS [facility] Last Admin: 07/08/20 21:51 Dose: 6 mg Documented by: Nystatin (Nystatin 500,000 Unit/5 Ml Udc) 500,000 unit PO BID [facility] Stop: 07/17/20 22:01 Last Admin: 07/09/20 07:47 Dose: 500,000 unit Documented by: Pantoprazole Sodium (Pantoprazole Sodium 40 Mg Tablet) 40 mg PO 0600 [facility] Last Admin: 07/09/20 06:45 Dose: 40 mg Documented by: Sertraline HCl (Sertraline 50 Mg Tablet) 25 mg PO DAILY [facility] Last Admin: 07/09/20 07:48 Dose: 25 mg Documented by: Trazodone HCl (Trazodone 50 Mg Tablet) 50 mg PO QHS [facility] Last Admin: 07/08/20 21:51 Dose: 50 mg Documented by: Medical Necessity - Tobacco Use Smoking Status: Never smoker Tobacco Use: Non-smoker Assessment/Plan All Active Problems Hemorrhagic cerebrovascular accident (CVA) (Acute) Dysphagia (Acute) Hemiparesis of left nondominant side (Acute) Thrush (Acute) Impressions 1. Physical debility secondary to hemorrhagic right basal ganglion CVA on 06/20/2020 with dysphagia, dysarthria, left hemiparesis. 2. Diabetes mellitus type 2 in obese-this is a new diagnosis for this patient 3. Hypertension 4. History of hypothyroidism -not on supplements 5. Morbid obesity 6. Dyslipidemia 7. Hypocalcemia 8. Thrush 9. Sleep disordered breathing? on oxygen at night. she denies ever having had a sleep study. STOP BANG score puts her at high risk for LUANNE 10. Left hemiparesis with left side neglect 11. Dysphagia - SEVERE 12. Dysarthria 13. Insomnia-on trazodone and melatonin 14. Suspected depression 15. Hypokalemia-better but I would like to see it closer to 4. 16. Vitamin D deficiency Add senna 2 tablets p.o. every morning Potassium chloride 10 mEq p.o. twice daily x6 doses Start a vitamin D supplement Recheck a BMP in a few days Continue therapy So far she is tolerating the Sertraline - consider increasing to 50 mg Thursday if she is having no problems Inpatient E&M: 93978 Subs Hosp L2
[2020-07-09 10:00] VITALS: PULSE 54; RESP 18; O2SAT 95
[2020-07-09 11:20] LABS: Bedside Glucose 151 mg/dL (70-110)
--- NOTE | 2020-07-09 11:42 | CASEMGMT ---
Social Work Received Medicaid pending# for pt - #[id number]. The plan is for pt and to DC to [facility]. BIJAL [employer] PAPETERIE TABLE ASSEMBLER
[2020-07-09] MEDS: Insulin Lispro 100 UNIT/ML INSULN.PEN SC (12:14)
[2020-07-09] MEDS: Bisacodyl 5 MG Tablet PO (13:51)
[2020-07-09] MEDS: Senna/Docusate Sodium 1 Tablet 2 TABLET PO (13:51)
[2020-07-09 18:35] LABS: Bedside Glucose 120 mg/dL (70-110)
[2020-07-09] MEDS: Atorvastatin Calcium 40 MG Tablet PO (20:44)
[2020-07-09] MEDS: MELATONIN 3 MG TABLET 6 MG PO (20:44)
[2020-07-09] MEDS: traZODone 50 MG Tablet PO (20:44)
[2020-07-09 21:01] LABS: Bedside Glucose 147 mg/dL (70-110)
[2020-07-09 21:56] VITALS: PULSE 61
[2020-07-09 21:59] VITALS: BP 140/73; PULSE 61; RESP 16; TEMP 37.1; O2SAT 94
[2020-07-10] MEDS: Enoxaparin 40 MG/0.4 ML Syringe SC (05:18)
[2020-07-10] MEDS: Pantoprazole Sodium 40 MG Tablet PO (05:18)
[2020-07-10 06:46] LABS: Bedside Glucose 106 mg/dL (70-110)
[2020-07-10] MEDS: Lisinopril 40 MG Tablet PO (08:10)
[2020-07-10] MEDS: Sertraline 50 MG Tablet 25 MG PO (08:10)
[2020-07-10] MEDS: Carvedilol 25 MG Tablet PO ×2 (08:10→16:32)
[2020-07-10] MEDS: Senna/Docusate Sodium 1 Tablet 2 TABLET PO (08:11)
[2020-07-10] MEDS: amLODIPine 10 MG Tablet PO (08:11)
[2020-07-10] MEDS: NYSTATIN 500,000 UNIT/5 ML UDC 500000 UNIT PO ×2 (08:11→21:37)
[2020-07-10 08:43] VITALS: BP 140/75; PULSE 53; RESP 16; TEMP 36.8; O2SAT 98
[2020-07-10 10:00] VITALS: BMI 38.9
[2020-07-10] MEDS: Acetaminophen 325 MG Tablet 650 MG PO ×2 (11:43→17:53)
[2020-07-10 12:05] LABS: Bedside Glucose 138 mg/dL (70-110)
[2020-07-10 18:25] LABS: Bedside Glucose 126 mg/dL (70-110)
[2020-07-10] MEDS: MELATONIN 3 MG TABLET 6 MG PO (21:37)
[2020-07-10] MEDS: Atorvastatin Calcium 40 MG Tablet PO (21:38)
[2020-07-10] MEDS: traZODone 50 MG Tablet PO (21:38)
[2020-07-10 21:52] VITALS: BMI 38.9
[2020-07-10 22:00] VITALS: BP 154/94; PULSE 55; RESP 16; TEMP 36.6; O2SAT 96
[2020-07-10 22:45] LABS: Bedside Glucose 147 mg/dL (70-110)
[2020-07-11] MEDS: Enoxaparin 40 MG/0.4 ML Syringe SC (05:32)
[2020-07-11] MEDS: Pantoprazole Sodium 40 MG Tablet PO (05:32)
[2020-07-11 06:40] LABS: Bedside Glucose 121 mg/dL (70-110)
[2020-07-11] MEDS: NYSTATIN 500,000 UNIT/5 ML UDC 500000 UNIT PO ×2 (07:40→21:44)
[2020-07-11] MEDS: Carvedilol 25 MG Tablet PO ×2 (07:40→17:49)
[2020-07-11] MEDS: amLODIPine 10 MG Tablet PO (07:40)
[2020-07-11] MEDS: Senna/Docusate Sodium 1 Tablet 2 TABLET PO (07:40)
[2020-07-11] MEDS: Lisinopril 40 MG Tablet PO (07:41)
[2020-07-11] MEDS: Sertraline 50 MG Tablet 25 MG PO (07:41)
[2020-07-11] MEDS: Acetaminophen 325 MG Tablet 650 MG PO ×2 (07:42→21:51)
[2020-07-11 07:47] VITALS: BP 145/78; PULSE 64; RESP 16; TEMP 36.8; O2SAT 95
[2020-07-11 12:06] LABS: Bedside Glucose 143 mg/dL (70-110)
--- NOTE | 2020-07-11 14:30 | CASEMGMT ---
Battery Vent Plug Inserter faxed clinicals to [facility]. Peggy ALVAREZ DIRECTOR NICU
[2020-07-11 15:14] VITALS: BMI 38.9
[2020-07-11 17:21] LABS: Bedside Glucose 116 mg/dL (70-110)
[2020-07-11 20:24] VITALS: BP 159/81; PULSE 64; RESP 16; TEMP 36.8; O2SAT 94
[2020-07-11 20:26] VITALS: BMI 38.9
[2020-07-11] MEDS: traZODone 50 MG Tablet PO (21:43)
[2020-07-11] MEDS: MELATONIN 3 MG TABLET 6 MG PO (21:44)
[2020-07-11] MEDS: Atorvastatin Calcium 40 MG Tablet PO (21:50)
[2020-07-11 22:00] VITALS: PULSE 64; RESP 16
[2020-07-11 23:25] LABS: Bedside Glucose 138 mg/dL (70-110)
[2020-07-12] MEDS: Acetaminophen 325 MG Tablet 650 MG PO ×2 (05:28→21:05)
[2020-07-12] MEDS: Pantoprazole Sodium 40 MG Tablet PO (05:29)
[2020-07-12] MEDS: Enoxaparin 40 MG/0.4 ML Syringe SC (05:29)
[2020-07-12 06:50] LABS: Bedside Glucose 117 mg/dL (70-110)
[2020-07-12 08:14] VITALS: BP 154/76; PULSE 68; RESP 16; TEMP 36.6; O2SAT 95
[2020-07-12] MEDS: Sertraline 50 MG Tablet 25 MG PO (08:22)
[2020-07-12] MEDS: amLODIPine 10 MG Tablet PO (08:22)
[2020-07-12] MEDS: NYSTATIN 500,000 UNIT/5 ML UDC 500000 UNIT PO ×2 (08:22→21:05)
[2020-07-12] MEDS: Lisinopril 40 MG Tablet PO (08:22)
[2020-07-12] MEDS: Carvedilol 25 MG Tablet PO ×2 (08:22→18:00)
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
--- NOTE | 2020-07-12 10:14 | CASEMGMT ---
Addendum entered by Jennyfer Fallon 07/12/20 13:56: PASRR completed. Cot transport scheduled through [facility] for 1 pm. Original Note: Social Work IDT met with patient, and dtr via conference call for Team meeting. Discussed patient's progress in therapy. Pt is max x2 for tx, sintia wrap leg for gait training ans took 3 steps while 'walking' with w/c follow. Pt using Nustep. Still no active movement in left arm but therapy completing ROM. Pt lacks sitting balance and leans heavily to left side, working on postural control. Pt is max-total for ADLs, standing in [place] for 45 seconds. Pt is on puree, pudding thick diet and is receiving MBS today. St working on visual scanning, attention, external memory aids. Pt is sleeping better and has no pain. Pt is not eating enough. started pt on medication until antidepressant becomes fully active. Explained [facility] approved additional days with NRD 07/17. IDT agree to DC date 07/17 to [facility]. Pt and family agreeable. Left message with [facility] on DC date. Will continue to follow. Jennyfer Fallon ,DYE STAND LOADER PHOTOCOPYING EQUIPMENT MECHANIC
[2020-07-12 10:45] VITALS: BMI 38.9
[2020-07-12 12:00] LABS: Bedside Glucose 133 mg/dL (70-110)
[2020-07-12 13:16] VITALS: PULSE 82
[2020-07-12] MEDS: hydrALAZINE 25 MG Tablet PO ×2 (13:16→21:05)
--- NOTE | 2020-07-12 13:20 | SP.MBSS_ITS ---
Modified Barium Swallow - Patient Information Study Date: 07/12/20 Study Time: 12:00 Direct Billable Minutes: 150 - including time spent transporting patient to radiology, use of randall to transfer to chair, study completion, transfer chrissie to [facility] via [facility], returning patient to the rehab unit, review images w/ interpretation & documentation and patient education Total Minutes procedure & reportin Diagnosis: Dysphagia Referring Physician: Marissa Lima Reason for Referral: To objectively assess swallow function and progress to date w/ dysphagia intervention and to determine appropriateness for diet advancement, given known history of silent aspiration Medical History: Marimar Slaughter is a 69 year old F with a PMH of HTN, hypothyroidism and obesity who presented to the [facility] ED on 06/20/2020 w/ c/o paresthesias of her left side followed by severe weakness of the left arm and leg. Brain CT brain showed a 2 cm hemorrhagic infarct involving the R basal ganglia. Pt was transferred to [facility] to be evaluated by neurosurgery. While at [facility] she was diagnosed with dyslipidemia and DM type 2. She did not require neurosurgical intervention. Pt was admitted to [facility] Inpatient Rehab Unit on 07/03/20 for >3 hours of therapy daily w/ the goal of returning home at/near her prior level of function. She has L facial droop, dysphagia, and dysarthria since her CVA. Current Diet Ordered: pureed textures / pudding thickened liquid Dentition: Natural Teeth Mental Status: WNL Respiratory Status: Oxygenating on Room Air - Penetration-Aspiration Scale Penetration-Aspiration Scale: OBJECTIVE ASSESSMENT OF SWALLOW FUNCTION (QUANTITATIVE ? PER TRIAL): PENETRATION / ASPIRATION SCALE (ROSENTHAL): 1 = does not enter airway 2 = enters airway/above vocal folds/ejected 3 = enters airway/above vocal folds/not ejected 4 = enters airway/contacts vocal folds/ejected 5 = enters airway/contacts vocal folds/not ejected 6 = enters airway/below vocal folds/ejected 7 = enters airway/below vocal folds/not ejected despite effort 8 = enters airway/below vocal folds/no effort VIDEOFLOROSCOPIC SCALE SCORE (ROSENTHAL): Grade I = aspiration of material that has penetrated into the laryngeal vestibule, intact cough reflex Grade II = aspiration < 10 % of the bolus, intact cough reflex Grade III = aspiration of < 10 % of the bolus, reduced cough reflex or aspiration of > 10 % of the bolus, intact cough reflex Grade IV = aspiration of > 10 % of the bolus, reduced cough reflex - Penetration-Aspiration Scale Score Thin Liquid via teaspoon Result: 4= enters airway/contacts vocal folds/ejected Thin Liquid via teaspoon Trial 2 Result: 4= enters airway/contacts vocal folds/ejected Thin Liquid via small single sip from cup Result: 4= enters airway/contacts vocal folds/ejected Thin Liquid via small single sip from cup Trial 2 Result: 8= enters airway/below vocal folds/no effort Comment: Grade III Thin Liquid via small single sip from cup Chin tuck Result: 1= does not enter airway Thin Liquid via small single sip from cup Chin tuck Trial 2 Result: 1= does not enter airway Thin Liquid via small single sip from cup Chin tuck Trial 3 Result: 8= enters airway/below vocal folds/no effort Comment: Grade III Thin Liquid via small single sip from cup Chin tuck Trial 4 Result: 2= enter airway/above vocal folds/ejected Blunt Thick Liquid via small single sip from cup Chin tuck Result: 1= does not enter airway Blunt Thick Liquid via small single sip from cup Chin tuck Trial 2 Result: 5= enters airways/contacts vocal folds/not ejected Blunt Thick Liquid via small single sip from cup Result: 1= does not enter airway Blunt Thick Liquid via small single sip from cup Trial 2 Result: 1= does not enter airway Pudding via teaspoon Result: 2= enter airway/above vocal folds/ejected Pudding via teaspoon Other Result: 1= does not enter airway - Prepratory set prior to swallow Cookie Result: 1= does not enter airway Blunt Thick Liquid via small single sip from cup Trial 3 Result: 3= enters airways/above vocal folds/not ejected Blunt Thick Liquid via small single sip from cup Chin tuck Trial 3 Result: 5= enters airways/contacts vocal folds/not ejected Comment: Unable to visualize below vocal folds to confirm aspiration d/t shoulder obstructing view; contrast entered the laryngeal vestibule to the level of the vocal folds w/ a portion of the contrast disappearing below the VF/shoulder w/ the remainder of the contrast ejecting upwards; contrast remained w/in the laryngeal vestibule post deglutition; Pen-Asp Score 5, although clinical judgement suggests Pen-Asp Score of 8. Honey Thick Liquid via small single sip from cup Chin tuck Result: 3= enters airways/above vocal folds/not ejected Honey Thick Liquid via small single sip from cup Result: 1= does not enter airway Honey Thick Liquid via small single sip from cup Trial 2 Result: 1= does not enter airway Thin Liquid via small single sip from cup Trial 3 Result: 2= enter airway/above vocal folds/ejected Thin Liquid via small single sip from cup Trial 4 Result: 2= enter airway/above vocal folds/ejected Thin Liquid via small single sip from cup Trial 5 Result: 7= enters airways/below vocal folds/not ejected despite effort Comment: Grade II Thin Liquid via small single sip from cup Chin tuck Trial 5 Result: 1= does not enter airway Thin Liquid via small single sip from cup Chin tuck Trial 6 Result: 2= enter airway/above vocal folds/ejected - Oral Phase Labial Seal: No Labial Escape Tongue Control During Bolus Hold: Cohesive bolus between tongue to palatal seal Bolus Preparation/Mastication: Slow prolonged chewing/mashing with complete recollection Bolus Transport/Lingual Motion: Slowed tongue motion Oral Residue: Residue collection on oral structures - Pharyngeal Phase Initiation of Pharyngeal Swallow: Bolus head in pyriforms Soft Palate Elevation: No bolus between soft palate and pharyngeal wall Laryngeal Elevation: Partial superior movement thyroid cart/partial apprx aryt- epig petiole Anterior Hyoid Excursion: Partial anterior movement Epiglottic Movement: Complete inversion Laryngeal Vestibule Closure at Height of Swallow: Incomplete; narrow column of air/contrast in laryngeal vestibule Pharyngeal Stripping Wave: Present - complete Pharyngoesophageal Segment Opening: Complete distension and complete duration; no obstruction of flow Tongue Base Retraction: Narrow column of contrast between tongue base & post. pharyngeal wall Pharyngeal Residue: Trace residue within or on pharyngeal structures - Esophageal Phase Esophageal Clearance: Complete clearance - Diagnosis/Impression Diagnosis: mild - moderate oropharyngeal dysphagia Impression: This patient presents w/ mild to moderate oropharyngeal dysphagia secondary to CVA. The oral phase is characterized by mildly prolonged mastication time and slowed lingual motion for bolus transport. Reduced base of tongue strength w/ reduced base of tongue to pharyngeal wall contact resulting in contrast accumulation on the tongue base. The pharyngeal phase is marked by delayed swallow onset w/ suboptimal bolus location at time of onset. At worst, liquid spilled directly into the laryngeal vestibule contacting the vocal folds prior to swallow onset and/or pooled w/in the pyriform sinuses w/ laryngeal vestibule penetration during deglutition. Delayed swallow onset timing w/ delayed laryngeal vestibule closure was the primary cause of swallow dysfunction resulting in penetration/aspiration. Thickened liquids were effective to reduce laryngeal vestibule entry prior to swallow onset when head was in a neutral/upright position. When the chin tuck posture was executed by flexing chin down towards chest WITHOUT bending at the neck, the patient achieved improved narrowing/closure of the laryngeal vestibule and successful airway protection. When the chin tuck posture was executed by simple bending the neck to achieve chin to chest contact, this worsened airway protection by allowing liquid to drop directly into the laryngeal vestibule. Due to inconsistency w/ chin tuck execution and subsequent variability in airway protection, it is recommended that thin liquids trials commence w/ use of chin tuck posture as described above ONLY under direct [employer]ER supervision. The patient demonstrated a weak cough in response to aspiration 1x, otherwise no outward response to trace aspiration of thin liquid 2x or penetration of thin or mildly thick (nectar) liquids when contacting the vocal folds. For this reason, a repeat MBS is strongly encouraged prior to advancement to thin liquids when the patient is able to consistently demonstrate effective chin tuck use during therapeutic trials. - Recommendations Diet: Mechanical Soft Textures, Blunt-thick Liquids Comment: Minced & Moist Textures / Mildly Thick (Blunt) Liquids Compensatory Strategies: Small Bites, Small Sips, Slow Rate, Sitting upright, Remain sitting upright for 30 minutes after PO intake, Assist with verbal cues to use recommended strategies Supervision: 1:1 Close Supervision - Direct [employer]ER supervision of first meal once advanced from puree/pudding to minced & moist/mildly thick Recommend Repeat Modified Barium Swallow: Yes Comment: The patient demonstrated a weak cough in response to aspiration 1x, otherwise no outward response to trace aspiration of thin liquid 2x or penetration of thin or mildly thick (nectar) liquids when contacting the vocal folds. For this reason, a repeat MBS is strongly encouraged prior to advancement to thin liquids when the patient is able to consistently demonstrate effective chin tuck use during therapeutic trials. Need for Skilled Speech Therapy Services: Yes Education Completed: 1. Described result of evaluation., 2. Pt understands evaluation & agrees with goals and treatment plan. Comment: Results and recommendations for diet upgrade and plan for continued dysphagia intervention based upon MBS findings were discussed w/ the patient and all questions were answered to the patient's satisfaction. Agreeable to await initiation of advanced diet until 07/13/20 while under direct COMBAT[employer] DIVER OFF[employer]ER supervision to assess tolerance and effective use of compensatory strategies. - Status Active ST Patient: Active - Contact Information [facility] Speech Therapy:: Chloé Ackerman M.A., [facility] Speech-Language Pathologist [email or web address] [phone]
[2020-07-12 18:31] LABS: Bedside Glucose 131 mg/dL (70-110)
[2020-07-12 21:05] VITALS: PULSE 89
[2020-07-12] MEDS: traZODone 50 MG Tablet PO (21:05)
[2020-07-12] MEDS: Atorvastatin Calcium 40 MG Tablet PO (21:05)
[2020-07-12] MEDS: MELATONIN 3 MG TABLET 6 MG PO (21:05)
[2020-07-12 21:26] LABS: Bedside Glucose 142 mg/dL (70-110)
[2020-07-12] MEDS: Dronabinol 2.5 MG Capsule PO (21:38)
[2020-07-12 22:00] VITALS: BP 121/64; PULSE 61; RESP 16; TEMP 36.7; O2SAT 94
[2020-07-13] MEDS: Pantoprazole Sodium 40 MG Tablet PO (04:58)
[2020-07-13] MEDS: Enoxaparin 40 MG/0.4 ML Syringe SC (04:58)
--- NOTE | 2020-07-13 05:09 | PCS.PANDOC ---
PANDEMIC DOCUMENTATION INITIATED: Date: Time: EMERGENCY DOCUMENTATION 07/02/2020 7236
[2020-07-13 06:30] LABS: Bedside Glucose 114 mg/dL (70-110)
[2020-07-13 08:08] VITALS: O2SAT 97
[2020-07-13 08:21] VITALS: PULSE 79
[2020-07-13] MEDS: Lisinopril 40 MG Tablet PO (08:21)
[2020-07-13] MEDS: hydrALAZINE 25 MG Tablet PO ×2 (08:21→20:31)
[2020-07-13] MEDS: Sertraline 50 MG Tablet PO (08:21)
[2020-07-13] MEDS: Carvedilol 25 MG Tablet PO ×2 (08:21→17:13)
[2020-07-13] MEDS: amLODIPine 10 MG Tablet PO (08:22)
[2020-07-13] MEDS: Acetaminophen 325 MG Tablet 650 MG PO ×2 (08:22→13:29)
[2020-07-13] MEDS: Senna/Docusate Sodium 1 Tablet 2 TABLET PO (08:23)
[2020-07-13] MEDS: NYSTATIN 500,000 UNIT/5 ML UDC 500000 UNIT PO ×2 (09:26→20:28)
[2020-07-13 10:00] VITALS: BP 112/65; PULSE 53; RESP 16; TEMP 36.7; O2SAT 98
--- NOTE | 2020-07-13 10:11 | PCM.PN.BLA ---
Progress Note Afebrile VSS-blood pressure is well controlled. Maintaining appropriate oxygen saturation on RA Oral intake is better this morning. She ate 100% of her breakfast today. Discussed with nursing - no problems that need addressed Reviewed the PT/OT/ST notes. Diet will be advanced at lunchtime and the speech therapist will monitor her during lunch. Medication list reviewed. I reviewed the modified barium swallow done yesterday and her diet has been changed to mechanical soft textures with nectar thick liquids. Tracie tells me that she finally feels rested today and she slept well last night....the best she has slept in weeks. She denies lightheadedness, shortness of breath, cough, nausea, abdominal pain, dysuria, chest pain. Sugar record was reviewed. The blood sugars are under excellent control with all blood sugars since 07/09/2020 less than 150. No hypoglycemia. Alert, appropriate, oriented x 3 Lungs -CTA HRRR, no gallop abd - soft and NT no peripheral edema speech is clear with good projection and good vocal quality. Impressions 1. post stroke debility 2. Dysphagia - diet has been upgraded to minced/moist with nectar thick liquids 3. HTN - controlled 4. DM III well controlled 5. PTSD with depression - tolerating Sertraline without SE. Increased to 50 mg daily yesterday. 6. Insomnia and inanition - better with Marinol - no sleepiness this AM - she is alert and appropriate Change the Accuchecks to BID BMP Thursday She has made good progress with swallowing and her voice is stronger and she projects well. I have no problem understanding her now. She is finally sleeping well and the appetite is much better AND the diet is advanced which I think will help with calorie intake as well. I suspect the failure to progress with PT and OT is due to not sleeping and having a very poor oral intake. I want to give her another week to evaluate progress with PT and OT for the next 7 days......if still not progressing with therapy will likely plan DC at that time to [facility]. She is agreeable to continuing the Sertraline and Marinol. We discusses the sx and tx of PTSD again today. Will allow a visit in the lobby with her today. They will both wear a mask and maintain social distancing. I think this is very important for emotional support at this time. STROKE Vital Signs/Narrative: Vital Signs Pulse Pulse Ox 07/13/20 08:21 79 07/13/20 08:08 97 Inpatient E&M: [id number] Subs Hosp L2
[2020-07-13 10:48] VITALS: BMI 38.9
[2020-07-13] MEDS: Arthritis Pain Compound 60 CLICK TUBE TOPICAL ×2 (13:30→20:30)
--- NOTE | 2020-07-13 14:35 | CASEMGMT ---
Social Work notified SW that she spoke with pt at length and would like to continue working with pt on RU for another week or so, and like to postpone her DC. Notified [facility]. Cancelled transport. Notified IDT. Spoke with dtr and gray her aware - dtr agreeable. Will continue to follow and Reteam next week. NRD 07/17. Jennyfer Fallon, BIJAL JIMENESW
[2020-07-13 18:41] LABS: Bedside Glucose 124 mg/dL (70-110)
[2020-07-13 19:39] VITALS: BP 139/64; PULSE 64; RESP 18; TEMP 36.6; O2SAT 95
[2020-07-13] MEDS: MELATONIN 3 MG TABLET 6 MG PO (20:28)
[2020-07-13] MEDS: Dronabinol 2.5 MG Capsule PO (20:29)
[2020-07-13] MEDS: Atorvastatin Calcium 40 MG Tablet PO (20:29)
[2020-07-13] MEDS: traZODone 50 MG Tablet PO (20:30)
[2020-07-13 20:31] VITALS: BP 139/64; PULSE 64
[2020-07-13 22:11] LABS: Bedside Glucose 130 mg/dL (70-110)
[2020-07-14] MEDS: Acetaminophen 325 MG Tablet 650 MG PO ×3 (00:51→21:49)
[2020-07-14 06:56] LABS: Bedside Glucose 98 mg/dL (70-110)
[2020-07-14] MEDS: Arthritis Pain Compound 60 CLICK TUBE TOPICAL ×3 (07:10→21:43)
[2020-07-14] MEDS: Enoxaparin 40 MG/0.4 ML Syringe SC (07:10)
[2020-07-14] MEDS: Pantoprazole Sodium 40 MG Tablet PO (07:10)
[2020-07-14 07:27] VITALS: O2SAT 95
[2020-07-14 08:43] VITALS: BP 149/74; PULSE 64; RESP 18; TEMP 36.8; O2SAT 95
[2020-07-14 09:52] VITALS: PULSE 72
[2020-07-14] MEDS: Carvedilol 25 MG Tablet PO ×2 (09:52→16:18)
[2020-07-14] MEDS: hydrALAZINE 25 MG Tablet PO ×2 (09:52→21:45)
[2020-07-14] MEDS: Lisinopril 40 MG Tablet PO (09:52)
[2020-07-14] MEDS: amLODIPine 10 MG Tablet PO (09:52)
[2020-07-14] MEDS: Sertraline 50 MG Tablet PO (09:53)
[2020-07-14] MEDS: NYSTATIN 500,000 UNIT/5 ML UDC 500000 UNIT PO ×2 (09:54→21:48)
--- NOTE | 2020-07-14 12:21 | PCM.PN.BLA ---
Progress Note Afebrile VSS Maintaining appropriate oxygen saturation on RA Oral intake is improving..... She ate 100% of her breakfast and is happy with the advance in her diet. She slept well last night. She denies pain. She tells me that the cream we are using on her right knee has helped with the arthritic pain. Discussed with nursing - no problems that need addressed Reviewed the PT/OT/ST notes Medication list reviewed. She is tolerating the increase in sertraline with no nausea/vomiting/abdominal pain/anxiety. Mucous membranes dry, no mucosal lesions No JVD Heart-regular rate and rhythm, no gallop Lungs-clear to auscultation anterior and lateral, no cough, not tachypneic at rest, Abdomen-soft, nontender, no guarding with palpation, bowel sounds present No peripheral edema, Cam wrap's are in place, denies calf pain. No skin breakdown. She has a rash on both flanks which is red, spotty and macular with some confluence. It is limited to the flanks. It is mildly pruritic. The rash has the appearance of a contact dermatitis. There is no rash on the extremities, chest, abdomen or face. Impressions 1. Postop debility 2. Suspected contact dermatitis 3. Dysphagia-diet has been advanced and the patient is tolerating. 4. Persistent severe left side weakness 5. Severe osteoarthritis of the knees-pain is improved with arthritic compounded cream CBC with differential and BMP in the a.m. Continue therapy She was very conversant today. 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 STROKE Vital Signs/Narrative: Vital Signs Temp Pulse Resp BP Pulse Ox 07/14/20 09:52 72 07/14/20 08:43 98.2 F 64 18 149/74 H 95 Inpatient E&M: [id number] Subs Hosp L2
[2020-07-14 14:04] VITALS: BMI 38.9
[2020-07-14 17:01] LABS: Bedside Glucose 135 mg/dL (70-110)
[2020-07-14 19:42] VITALS: BP 135/74; PULSE 65; RESP 18; TEMP 36.7; O2SAT 95
[2020-07-14 19:52] VITALS: BMI 38.9
[2020-07-14 21:45] VITALS: PULSE 68
[2020-07-14] MEDS: Dronabinol 2.5 MG Capsule PO (21:45)
[2020-07-14] MEDS: traZODone 50 MG Tablet PO (21:45)
[2020-07-14] MEDS: Atorvastatin Calcium 40 MG Tablet PO (21:45)
[2020-07-14] MEDS: MELATONIN 3 MG TABLET 6 MG PO (21:45)
[2020-07-14 22:00] VITALS: PULSE 70; RESP 16
[2020-07-15] MEDS: Arthritis Pain Compound 60 CLICK TUBE TOPICAL ×3 (05:21→19:45)
[2020-07-15] MEDS: Enoxaparin 40 MG/0.4 ML Syringe SC (05:22)
[2020-07-15] MEDS: Pantoprazole Sodium 40 MG Tablet PO (05:22)
[2020-07-15 06:12] LABS: Absolute Lymphocyte Count 0.77 X10^3/uL (0.83-4.51); Absolute Neutrophil Count 4.1 X10^3/uL (2.0-7.7); Basophil# 0.03 X10^3/uL; Basophil% 0.5 % (0-1); Eosinophil# 0.19 X10^3/uL; Eosinophils% 3.3 % (0-5); Hematocrit 40.6 % (37-47); Hemoglobin 13.6 g/dL (12.0-15.0); Lymphocyte # 0.77 X10^3/ul (4.0); Lymphocyte % 13.4 % (19-41); Mean Corp Hgb Conc 33.5 g/dL (32-36); Mean Corpuscular Hgb 31.5 pg (27.0-32.0); Mean Platelet Vol. 9.5 fl (6.2-12.0); Monocyte# 0.64 X10^3/uL; Monocyte% 11.2 % (0-10); NRBC Flagged by Analyzer 0 % (0-5); Neutrophil # 4.09 X10^3/uL (2.7-7.7); Neutrophil % 71.4 % (47-70); Platelet Count 203 K/mm3 (150-450); RBC Distribution Width CV 13.7 % (11.6-14.6); RBC Distribution Width SD 47.3 fl (35.1-43.9); Red Blood Count 4.32 M/mm3 (4.2-5.4); White Blood Count 5.7 K/mm3 (4.4-11.0)
[2020-07-15 06:34] LABS: Anion Gap 5 (5-15); BUN 12 mg/dL (7-18); BUN/Creat Ratio 20.4 RATIO (10-20); Calcium,Total 8.2 mg/dL (8.5-10.1); Chloride 107 mmol/L (98-107); Creatinine, Serum 0.59 mg/dL (0.55-1.02); EST Glomerular Filtration Rate 108 mL/min (>60); Est Glom Filt Rate - Afr Amer 130 mL/min (>60); Estimated Creatinine Clearance 47.78 ml/min; Glucose 105 mg/dL (74-106); Potassium 3.3 mmol/L (3.5-5.1); Sodium Level 141 mmol/L (136-145)
[2020-07-15 06:56] LABS: Bedside Glucose 121 mg/dL (70-110)
[2020-07-15 08:24] VITALS: BP 138/76; PULSE 68; RESP 17; TEMP 36.6; O2SAT 96
[2020-07-15] MEDS: NYSTATIN 500,000 UNIT/5 ML UDC 500000 UNIT PO ×2 (09:16→19:47)
[2020-07-15] MEDS: Sertraline 50 MG Tablet PO (09:16)
[2020-07-15] MEDS: amLODIPine 10 MG Tablet PO (09:16)
[2020-07-15] MEDS: Acetaminophen 325 MG Tablet 650 MG PO ×3 (09:17→21:35)
[2020-07-15] MEDS: Lisinopril 40 MG Tablet PO (09:17)
[2020-07-15] MEDS: Carvedilol 25 MG Tablet PO ×2 (09:18→15:24)
[2020-07-15 09:19] VITALS: PULSE 73
[2020-07-15] MEDS: hydrALAZINE 25 MG Tablet PO ×2 (09:19→19:46)
[2020-07-15 11:32] VITALS: BMI 38.9
[2020-07-15 16:20] LABS: Bedside Glucose 154 mg/dL (70-110)
[2020-07-15 18:48] VITALS: BP 130/72; PULSE 60; RESP 16; TEMP 36.6; O2SAT 95
[2020-07-15 19:40] VITALS: BMI 38.9
[2020-07-15] MEDS: Dronabinol 2.5 MG Capsule PO (19:44)
[2020-07-15] MEDS: Atorvastatin Calcium 40 MG Tablet PO (19:45)
[2020-07-15] MEDS: traZODone 50 MG Tablet PO (19:45)
[2020-07-15 19:46] VITALS: PULSE 64
[2020-07-15] MEDS: MELATONIN 3 MG TABLET 6 MG PO (19:46)
[2020-07-15 22:00] VITALS: PULSE 64; RESP 16
[2020-07-16] MEDS: Enoxaparin 40 MG/0.4 ML Syringe SC (05:59)
[2020-07-16] MEDS: Pantoprazole Sodium 40 MG Tablet PO (06:00)
[2020-07-16] MEDS: Arthritis Pain Compound 60 CLICK TUBE TOPICAL ×3 (06:00→21:52)
[2020-07-16] MEDS: Acetaminophen 325 MG Tablet 650 MG PO ×3 (06:01→22:09)
[2020-07-16 06:45] LABS: Bedside Glucose 114 mg/dL (70-110)
[2020-07-16 07:10] VITALS: O2SAT 98
[2020-07-16] MEDS: Carvedilol 25 MG Tablet PO ×2 (08:17→17:53)
[2020-07-16 08:18] VITALS: BP 141/84; PULSE 60; PULSE 63; RESP 16; TEMP 36.5; O2SAT 96
[2020-07-16] MEDS: hydrALAZINE 25 MG Tablet PO ×2 (08:18→21:52)
[2020-07-16] MEDS: amLODIPine 10 MG Tablet PO (08:19)
[2020-07-16] MEDS: NYSTATIN 500,000 UNIT/5 ML UDC 500000 UNIT PO ×2 (08:19→21:54)
[2020-07-16] MEDS: Lisinopril 40 MG Tablet PO (08:19)
[2020-07-16] MEDS: Sertraline 50 MG Tablet PO (08:19)
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
[2020-07-16 11:39] VITALS: BMI 38.9
[2020-07-16 16:51] LABS: Bedside Glucose 138 mg/dL (70-110)
[2020-07-16 19:51] VITALS: BP 143/74; PULSE 86; RESP 16; TEMP 36.6; O2SAT 96
[2020-07-16 20:26] VITALS: BMI 38.9
[2020-07-16 21:52] VITALS: BP 140/82; PULSE 84
[2020-07-16] MEDS: Atorvastatin Calcium 40 MG Tablet PO (21:54)
[2020-07-16] MEDS: MELATONIN 3 MG TABLET 6 MG PO (21:54)
[2020-07-16] MEDS: Dronabinol 2.5 MG Capsule PO (21:54)
[2020-07-16 22:00] VITALS: PULSE 86; RESP 16; O2SAT 96
[2020-07-16] MEDS: traZODone 50 MG Tablet PO (22:05)
[2020-07-16 22:16] LABS: Bedside Glucose 127 mg/dL (70-110)
[2020-07-17] MEDS: Acetaminophen 325 MG Tablet 650 MG PO ×3 (04:03→18:47)
[2020-07-17] MEDS: Pantoprazole Sodium 40 MG Tablet PO (06:10)
[2020-07-17] MEDS: Arthritis Pain Compound 60 CLICK TUBE TOPICAL ×3 (06:11→22:05)
[2020-07-17] MEDS: Enoxaparin 40 MG/0.4 ML Syringe SC (06:11)
[2020-07-17 06:31] LABS: Bedside Glucose 141 mg/dL (70-110)
[2020-07-17 06:55] VITALS: O2SAT 97
[2020-07-17 07:42] VITALS: BP 141/72; PULSE 57; RESP 16; TEMP 36.6; O2SAT 96
[2020-07-17 07:51] VITALS: PULSE 64
[2020-07-17] MEDS: NYSTATIN 500,000 UNIT/5 ML UDC 500000 UNIT PO ×2 (07:51→22:03)
[2020-07-17] MEDS: hydrALAZINE 25 MG Tablet PO ×2 (07:51→22:05)
[2020-07-17] MEDS: amLODIPine 10 MG Tablet PO (07:51)
[2020-07-17] MEDS: Lisinopril 40 MG Tablet PO (07:51)
[2020-07-17] MEDS: Sertraline 50 MG Tablet PO (07:51)
[2020-07-17] MEDS: Carvedilol 25 MG Tablet PO ×2 (07:52→17:16)
--- NOTE | 2020-07-17 10:20 | CASEMGMT ---
Social Work IDT met with patient and dtr via conference call for Team meeting. Discussed patient's progress in therapy. Pt is x2 for tx, standing 40 seconds, using Saralift for more stability and standing longer, total for toileting, max s2 for shower tx, set up while seated for grooming, total UE/LE ADLs. Pt has no active muscle movement with left arm but doing ROM. ST working on recall, functional reading, and swallowing exercises. Pt was upgraded in diet from [facility] to [facility] soft and nectar thick liquid with FFWP. Pt is sleeping well. Explained MMO with NRD 07/17. Will ReTeam next week and discuss DC date to [facility]. Will continue to follow. Jennyfer Fallon, BIJAL UPKEEP MECHANIC
--- NOTE | 2020-07-17 10:55 | PCM.PN.BLA ---
Progress Note Tracie was seen on team rounds today. Her daughter Bryanna participated by phone. Afebrile VSS Maintaining appropriate oxygen saturation on RA Oral intake is good Remains incontinent of urine. Last bowel movement 07/16/2020 Discussed with nursing - no problems that need addressed Reviewed the PT/OT/ST notes Medication list reviewed. Blood sugar record was reviewed and blood sugars are under good control with no hypoglycemia. Tracie is complaining of not sleeping well last night secondary to severe pain in the left leg related to spasms. She now tells me that she has been having this for a few days and it happens almost exclusively at night. She tells me she sees her legs jump. She denies any prior history of restless leg syndrome. She denies cough, shortness of breath, chest pain, palpitations, nausea, vomiting, abdominal pain, dysuria. She is somewhat sleepy today because she exerted herself with the OT taking a shower this AM. She also did not sleep well last night. Appetite is good. Alert, oriented x3, pleasant, no apparent distress, sitting in the recliner at the bedside Lungs-clear to auscultation with good air exchange Heart-regular rate and rhythm, no gallop Abdomen-obese, soft, nontender to palpation, normal bowel sounds No peripheral edema, Cam wraps in place. No change in the fine pink macular rash which is limited to the bilateral flanks. Persistent severe left side weakness Impressions 1. Post stroke debility 2. Dysphagia 3. Osteoarthritis 4. Suspected restless leg syndrome 5. Depression and PTSD DC the Trazodone at night and start Neurontin 300 mg Q HS Check a potassium in the AM Continue therapy STROKE Vital Signs/Narrative: Vital Signs Temp Pulse Resp BP Pulse Ox 07/17/20 07:51 64 07/17/20 07:42 97.8 F 57 L 16 141/72 H 96 Inpatient E&M: 28851 Subs Hosp L2
[2020-07-17 13:13] VITALS: BMI 38.9
[2020-07-17] MEDS: Nystatin Powder 15gm Bottle 1 APPLIC TOPICAL ×2 (14:30→22:03)
--- NOTE | 2020-07-17 16:16 | CHAPLAIN ---
Type of Pastoral Visit _x__ Initial Visit ___ Follow-up Visit ___ On-call Visit ___ General Patient Visit ___ Spiritual Assessment ___ Family Conference ___ Bereavement ___ Rapid Response ___ Code Blue ___ Other (describe below) Pastoral Care Referral From ___ Patient ___ Family ___ Nurse ___ Physician _x__ Automobile Upholsterer ___ Tare Worker ___ Other (describe below) Sacrament/Intervention ___ Active listening ___ Anointing ___ Synagogue ___ Bereavement ___ Communion ___ Aggie exploration ___ ___ Life review ___ Prayer ___ Reconciliation ___ Sacrament of Sick _x__ Supportive presence ___ Wedding ___ Other (describe below) Pastoral Comments patient is awake and lying in bed; introduced self and role of contract lead to patient; pt answers questions with one word answers; pt declines support at this time
[2020-07-17 19:09] VITALS: BP 142/81; PULSE 61; RESP 17; TEMP 36.8; O2SAT 95
[2020-07-17 19:21] LABS: Bedside Glucose 99 mg/dL (70-110)
[2020-07-17] MEDS: MELATONIN 3 MG TABLET 6 MG PO (22:03)
[2020-07-17] MEDS: Gabapentin 300 MG Capsule PO (22:03)
[2020-07-17] MEDS: Dronabinol 2.5 MG Capsule PO (22:04)
[2020-07-17] MEDS: Atorvastatin Calcium 40 MG Tablet PO (22:04)
[2020-07-17 22:05] VITALS: BP 142/81; PULSE 61
[2020-07-18] MEDS: Enoxaparin 40 MG/0.4 ML Syringe SC (06:00)
[2020-07-18] MEDS: Arthritis Pain Compound 60 CLICK TUBE TOPICAL ×3 (06:00→22:40)
[2020-07-18] MEDS: Pantoprazole Sodium 40 MG Tablet PO (06:00)
[2020-07-18 06:40] LABS: Bedside Glucose 107 mg/dL (70-110)
[2020-07-18 06:55] VITALS: O2SAT 94
[2020-07-18 07:43] VITALS: PULSE 61
[2020-07-18] MEDS: hydrALAZINE 25 MG Tablet PO ×2 (07:43→22:40)
[2020-07-18] MEDS: Lisinopril 40 MG Tablet PO (07:43)
[2020-07-18] MEDS: Gabapentin 100 MG Capsule PO (07:43)
[2020-07-18] MEDS: amLODIPine 10 MG Tablet PO (07:43)
[2020-07-18] MEDS: Carvedilol 25 MG Tablet PO ×2 (07:43→17:13)
[2020-07-18] MEDS: Sertraline 50 MG Tablet PO (07:43)
[2020-07-18] MEDS: Nystatin Powder 15gm Bottle 1 APPLIC TOPICAL ×2 (07:46→22:38)
--- NOTE | 2020-07-18 08:38 | CPS ---
Pt. is on room air during day, but she wears 2L NC at nights. (desaturations during bed-time)
[2020-07-18 09:18] VITALS: BP 126/74; PULSE 55; RESP 16; TEMP 36.6; O2SAT 93
[2020-07-18 15:27] VITALS: BMI 38.9
--- NOTE | 2020-07-18 16:00 | CASEMGMT ---
Social Work Faxed updated clinicals to [facility]. Spoke with Paulette about pt and admitting soon. Paulette stated she still needs documents from [facility] that they are both going to be approved for ESDRAS despite MCDP#. Contacted dtr and explained above. SW has been speaking with but Paulette and SW explained to dtr for her to be the point of contact to ensure there is not another breakdown in communication. Dtr to get in touch with the case finisher from [facility] and get documents submitted to ensure pt can transfer to [facility]. Will continue to follow. Jennyfer Fallon, BIJAL JIMENESW
--- NOTE | 2020-07-18 16:45 | PCM.PN.BLA ---
Progress Note Afebrile VSS Maintaining appropriate oxygen saturation on RA Oral intake is good. She is eating 75 to 100% of all her meals now. Sometimes incontinent of urine if no one gets to her room fast enough but knows when she has to go now. Discussed with nursing - no problems that need addressed Reviewed the PT/OT/ST notes - Continues to require max/total assist with toilet transfer, toileting, showering, lower body dressing. Has ambulated 10 ft against the wall rail with max assist X1 on 07/17. Did 15 minutes on the Nu-step. Stand and pivot max assist X 2. swallowing is going well and she is tolerating the [facility] soft nectar thick diet with no significant cough and no tearing up or red face. Medication list reviewed. Tracie states that the spasms in her left leg were much better last night and she was able to sleep since being placed on Neurontin at bedtime. She denies spasms in the left leg today. She denies nausea/vomiting/abdominal pain/lightheadedness. She has not having nightmares and is tolerating sertraline 50 mg well with no adverse side effects. Blood sugars are well controlled. No hypoglycemia. She was sleeping when I entered the room but was easily aroused. She is lying nearly flat in bed with no tachypnea and no conversational dyspnea. No JVD Mucous membranes are moist Lungs are clear to auscultation anterior and lateral Abdomen is soft, nontender to palpation, nondistended No peripheral edema No calf tenderness The rash in the flanks is fading and is a light brown with a few small areas of pink macular discoloration yet. She has pruritus but it is not bad. the rash has not spread and it is improving..... Eosinophils on the CBC are within normal limits. Impressions 1. No stroke debility 2. Contact dermatitis of the flanks likely secondary to the attends or the detergent used on the draw sheet. 3. Dysphagia-much improved since admission 4. Persistent severe left-sided weakness -not really progressing with PT and OT. 5. PTSD/depression-positive results with sertraline and she is tolerating this medication well without adverse side effect. 6. Hypokalemia-she was placed on a daily supplement 2 days ago. 7. Vitamin D deficiency-started on cholecalciferol 2000 international units daily Recheck potassium level in the a.m. Continue therapy and reevaluate next week. If she is still not made progress with PT/OT will likely set a discharge date and discharge to [facility] nursing [facility]. Inpatient E&M: 45676 Subs Hosp L2
[2020-07-18 17:36] LABS: Bedside Glucose 118 mg/dL (70-110)
[2020-07-18] MEDS: Acetaminophen 325 MG Tablet 650 MG PO (19:18)
[2020-07-18 19:24] VITALS: BP 152/80; PULSE 63; RESP 16; TEMP 36.8; O2SAT 95
[2020-07-18] MEDS: Gabapentin 300 MG Capsule PO (22:38)
[2020-07-18] MEDS: Dronabinol 2.5 MG Capsule PO (22:39)
[2020-07-18] MEDS: MELATONIN 3 MG TABLET 6 MG PO (22:39)
[2020-07-18] MEDS: Atorvastatin Calcium 40 MG Tablet PO (22:39)
[2020-07-18 22:40] VITALS: BP 152/80; PULSE 63
[2020-07-19 05:28] LABS: Potassium 3.9 mmol/L (3.5-5.1)
[2020-07-19] MEDS: Pantoprazole Sodium 40 MG Tablet PO (06:19)
[2020-07-19] MEDS: Enoxaparin 40 MG/0.4 ML Syringe SC (06:19)
[2020-07-19] MEDS: Arthritis Pain Compound 60 CLICK TUBE TOPICAL ×3 (06:19→21:44)
[2020-07-19 07:10] LABS: Bedside Glucose 128 mg/dL (70-110)
[2020-07-19] MEDS: Senna/Docusate Sodium 1 Tablet 2 TABLET PO (07:45)
[2020-07-19 07:46] VITALS: BP 119/73; PULSE 61
[2020-07-19] MEDS: amLODIPine 10 MG Tablet PO (07:46)
[2020-07-19] MEDS: Lisinopril 40 MG Tablet PO (07:46)
[2020-07-19] MEDS: hydrALAZINE 25 MG Tablet PO ×2 (07:46→21:44)
[2020-07-19] MEDS: Gabapentin 100 MG Capsule PO (07:46)
[2020-07-19] MEDS: Sertraline 50 MG Tablet PO (07:46)
[2020-07-19] MEDS: Nystatin Powder 15gm Bottle 1 APPLIC TOPICAL ×2 (07:47→21:44)
[2020-07-19] MEDS: Carvedilol 25 MG Tablet PO ×2 (07:47→16:38)
[2020-07-19 09:19] VITALS: BP 119/73; PULSE 61; RESP 16; TEMP 36.9; O2SAT 97
[2020-07-19 11:24] VITALS: BMI 38.9
[2020-07-19 12:10] LABS: Bedside Glucose 134 mg/dL (70-110)
[2020-07-19 17:21] LABS: Bedside Glucose 144 mg/dL (70-110)
[2020-07-19 19:33] VITALS: BP 138/81; PULSE 64; RESP 18; TEMP 37.2; O2SAT 93
[2020-07-19 19:57] VITALS: BMI 38.9
[2020-07-19 20:56] LABS: Bedside Glucose 211 mg/dL (70-110)
[2020-07-19] MEDS: MELATONIN 3 MG TABLET 6 MG PO (21:42)
[2020-07-19] MEDS: Dronabinol 2.5 MG Capsule PO (21:43)
[2020-07-19] MEDS: Atorvastatin Calcium 40 MG Tablet PO (21:43)
[2020-07-19 21:44] VITALS: PULSE 66
[2020-07-19] MEDS: Gabapentin 300 MG Capsule PO (21:45)
[2020-07-19] MEDS: Acetaminophen 325 MG Tablet 650 MG PO (21:46)
[2020-07-19 22:00] VITALS: PULSE 64; RESP 17
[2020-07-20] MEDS: Arthritis Pain Compound 60 CLICK TUBE TOPICAL ×2 (05:10→22:40)
[2020-07-20] MEDS: Pantoprazole Sodium 40 MG Tablet PO (05:11)
[2020-07-20] MEDS: Enoxaparin 40 MG/0.4 ML Syringe SC (05:11)
[2020-07-20 06:43] VITALS: O2SAT 96
[2020-07-20 06:55] LABS: Bedside Glucose 141 mg/dL (70-110)
[2020-07-20] MEDS: Sertraline 50 MG Tablet PO (08:09)
[2020-07-20] MEDS: amLODIPine 10 MG Tablet PO (08:09)
[2020-07-20] MEDS: Carvedilol 25 MG Tablet PO ×2 (08:09→18:25)
[2020-07-20] MEDS: Gabapentin 100 MG Capsule PO (08:11)
[2020-07-20] MEDS: Lisinopril 40 MG Tablet PO (08:11)
[2020-07-20 08:12] VITALS: PULSE 70
[2020-07-20] MEDS: hydrALAZINE 25 MG Tablet PO ×2 (08:12→22:32)
[2020-07-20] MEDS: Nystatin Powder 15gm Bottle 1 APPLIC TOPICAL ×2 (08:22→22:44)
[2020-07-20 08:58] VITALS: BP 121/62; PULSE 55; RESP 16; TEMP 36.8; O2SAT 95
[2020-07-20] MEDS: Acetaminophen 325 MG Tablet 650 MG PO ×2 (11:02→22:38)
[2020-07-20 15:41] LABS: Bedside Glucose 136 mg/dL (70-110)
[2020-07-20 17:00] VITALS: BMI 38.9
--- NOTE | 2020-07-20 19:10 | PCA ---
offered to get patient up several times today and patient refused.
[2020-07-20 21:16] LABS: Bedside Glucose 152 mg/dL (70-110)
[2020-07-20 22:00] VITALS: BP 134/97; PULSE 63; RESP 18; TEMP 36.4; O2SAT 97
[2020-07-20 22:32] VITALS: BP 134/97; PULSE 63
[2020-07-20] MEDS: Dronabinol 2.5 MG Capsule PO (22:32)
[2020-07-20] MEDS: Atorvastatin Calcium 40 MG Tablet PO (22:32)
[2020-07-20] MEDS: Gabapentin 300 MG Capsule PO (22:32)
[2020-07-20] MEDS: MELATONIN 3 MG TABLET 6 MG PO (22:32)
[2020-07-21 06:30] LABS: Bedside Glucose 138 mg/dL (70-110)
[2020-07-21] MEDS: Enoxaparin 40 MG/0.4 ML Syringe SC (06:54)
[2020-07-21] MEDS: Arthritis Pain Compound 60 CLICK TUBE TOPICAL ×3 (06:54→21:12)
[2020-07-21] MEDS: Pantoprazole Sodium 40 MG Tablet PO (06:55)
--- NOTE | 2020-07-21 08:00 | CPS ---
PATIENT ON O2 FOR SLEEP
[2020-07-21 08:02] VITALS: PULSE 77
[2020-07-21] MEDS: Sertraline 50 MG Tablet PO (08:02)
[2020-07-21] MEDS: Lisinopril 40 MG Tablet PO (08:02)
[2020-07-21] MEDS: hydrALAZINE 25 MG Tablet PO ×2 (08:02→21:13)
[2020-07-21] MEDS: amLODIPine 10 MG Tablet PO (08:02)
[2020-07-21] MEDS: Gabapentin 100 MG Capsule PO (08:05)
[2020-07-21] MEDS: Carvedilol 25 MG Tablet PO ×2 (08:05→16:36)
[2020-07-21] MEDS: Nystatin Powder 15gm Bottle 1 APPLIC TOPICAL (08:07)
[2020-07-21 08:42] VITALS: BP 116/70; PULSE 54; RESP 16; TEMP 36.7; O2SAT 96
[2020-07-21] MEDS: Acetaminophen 325 MG Tablet 650 MG PO ×3 (08:56→21:13)
[2020-07-21 13:48] VITALS: BMI 38.9
[2020-07-21 17:31] LABS: Bedside Glucose 170 mg/dL (70-110)
[2020-07-21 19:28] VITALS: BP 115/68; PULSE 87; RESP 17; TEMP 36.4; O2SAT 95
[2020-07-21 20:51] LABS: Bedside Glucose 199 mg/dL (70-110)
[2020-07-21 21:13] VITALS: PULSE 89
[2020-07-21] MEDS: Dronabinol 2.5 MG Capsule PO (21:13)
[2020-07-21] MEDS: MELATONIN 3 MG TABLET 6 MG PO (21:13)
[2020-07-21] MEDS: Atorvastatin Calcium 40 MG Tablet PO (21:13)
[2020-07-21] MEDS: Gabapentin 300 MG Capsule PO (21:13)
[2020-07-21 22:28] VITALS: BMI 38.9
[2020-07-22] MEDS: Enoxaparin 40 MG/0.4 ML Syringe SC (05:42)
[2020-07-22] MEDS: Arthritis Pain Compound 60 CLICK TUBE TOPICAL ×3 (05:42→19:49)
[2020-07-22] MEDS: Pantoprazole Sodium 40 MG Tablet PO (05:42)
[2020-07-22] MEDS: Acetaminophen 325 MG Tablet 650 MG PO ×3 (05:42→18:35)
[2020-07-22 06:40] LABS: Bedside Glucose 159 mg/dL (70-110)
[2020-07-22 07:38] VITALS: BP 129/65; PULSE 57; RESP 16; TEMP 36.9; O2SAT 98
[2020-07-22] MEDS: Lisinopril 40 MG Tablet PO (08:38)
[2020-07-22] MEDS: Sertraline 50 MG Tablet PO (08:38)
[2020-07-22 08:39] VITALS: PULSE 78
[2020-07-22] MEDS: Gabapentin 100 MG Capsule PO (08:39)
[2020-07-22] MEDS: amLODIPine 10 MG Tablet PO (08:39)
[2020-07-22] MEDS: hydrALAZINE 25 MG Tablet PO ×2 (08:39→19:47)
[2020-07-22] MEDS: Carvedilol 25 MG Tablet PO ×2 (08:39→15:53)
[2020-07-22] MEDS: Nystatin Powder 15gm Bottle 1 APPLIC TOPICAL ×2 (08:40→20:01)
--- NOTE | 2020-07-22 11:39 | NURSING ---
Majority of the time patient has been [facility] for nursing. patient has been using call frey appropriately for bedpan assist. Left side remains flaccid with left arm propped up on pillow all the time. Assists with turning and repositioning, partial assist needed from nursing.
[2020-07-22 14:02] VITALS: BMI 38.9
[2020-07-22 16:26] LABS: Bedside Glucose 138 mg/dL (70-110)
[2020-07-22] MEDS: Hydrocortisone 2.5% Crm 1 APPLIC TOPICAL ×2 (16:36→19:47)
--- NOTE | 2020-07-22 17:08 | NURSING ---
Pt refused to get OOB despite staff encouragement, offered several times to get pt up in chair, refused.
[2020-07-22 19:22] VITALS: BP 129/76; PULSE 65; RESP 16; TEMP 36.2; O2SAT 94
[2020-07-22] MEDS: MELATONIN 3 MG TABLET 6 MG PO (19:46)
[2020-07-22 19:47] VITALS: PULSE 65
[2020-07-22] MEDS: Gabapentin 300 MG Capsule PO (19:48)
[2020-07-22] MEDS: Dronabinol 2.5 MG Capsule PO (19:48)
[2020-07-22] MEDS: Atorvastatin Calcium 40 MG Tablet PO (19:48)
[2020-07-22 22:53] VITALS: BMI 38.9
[2020-07-23] MEDS: Acetaminophen 325 MG Tablet 650 MG PO ×4 (01:21→20:03)
[2020-07-23] MEDS: Arthritis Pain Compound 60 CLICK TUBE TOPICAL ×3 (05:44→20:07)
[2020-07-23] MEDS: Enoxaparin 40 MG/0.4 ML Syringe SC (05:44)
[2020-07-23] MEDS: Pantoprazole Sodium 40 MG Tablet PO (05:45)
[2020-07-23 07:01] LABS: Bedside Glucose 113 mg/dL (70-110)
[2020-07-23 07:43] VITALS: O2SAT 94
[2020-07-23 10:00] VITALS: BP 131/66; PULSE 52; RESP 16; TEMP 36.3; O2SAT 96
[2020-07-23 10:52] VITALS: PULSE 54
[2020-07-23] MEDS: hydrALAZINE 25 MG Tablet PO ×2 (10:52→20:06)
[2020-07-23] MEDS: Carvedilol 25 MG Tablet PO ×2 (10:52→18:07)
[2020-07-23] MEDS: amLODIPine 10 MG Tablet PO (10:54)
[2020-07-23] MEDS: Gabapentin 100 MG Capsule PO (10:54)
[2020-07-23] MEDS: Sertraline 50 MG Tablet PO (10:55)
[2020-07-23] MEDS: Lisinopril 40 MG Tablet PO (10:55)
[2020-07-23] MEDS: Nystatin Powder 15gm Bottle 1 APPLIC TOPICAL ×2 (10:58→20:10)
--- NOTE | 2020-07-23 12:34 | CASEMGMT ---
Social Work Followed up with [facility]. Spoke with Paulette whom confirmed received updated clinicals and will review Medicaid information to ensure pt would qualify and they can officially accept pt. Asked Paulette to contact if they have any questions or concerns about not being able to accept pt. Paulette agreed. Will continue to follow. BIJAL DukeW
[2020-07-23 15:44] VITALS: BMI 38.9
[2020-07-23 19:29] VITALS: BP 134/98; PULSE 62; RESP 16; TEMP 36.7; O2SAT 96
[2020-07-23] MEDS: Gabapentin 300 MG Capsule PO (20:05)
[2020-07-23 20:06] VITALS: PULSE 64
[2020-07-23] MEDS: Atorvastatin Calcium 40 MG Tablet PO (20:06)
[2020-07-23] MEDS: MELATONIN 3 MG TABLET 6 MG PO (20:06)
[2020-07-23 20:10] VITALS: BMI 38.9
[2020-07-23] MEDS: Dronabinol 2.5 MG Capsule PO (20:18)
[2020-07-23 20:26] LABS: Bedside Glucose 151 mg/dL (70-110)
[2020-07-23 22:00] VITALS: RESP 16
[2020-07-24] MEDS: Arthritis Pain Compound 60 CLICK TUBE TOPICAL ×2 (06:31→13:31)
[2020-07-24] MEDS: Enoxaparin 40 MG/0.4 ML Syringe SC (06:32)
[2020-07-24] MEDS: Pantoprazole Sodium 40 MG Tablet PO (06:32)
[2020-07-24] MEDS: Acetaminophen 325 MG Tablet 650 MG PO ×3 (06:34→21:43)
[2020-07-24 06:56] LABS: Bedside Glucose 110 mg/dL (70-110)
[2020-07-24 08:28] VITALS: BP 125/78; PULSE 69; RESP 16; TEMP 36.6; O2SAT 98
[2020-07-24] MEDS: Carvedilol 25 MG Tablet PO ×2 (08:35→16:33)
[2020-07-24 08:37] VITALS: PULSE 69
[2020-07-24] MEDS: hydrALAZINE 25 MG Tablet PO ×2 (08:37→21:44)
[2020-07-24] MEDS: Lisinopril 40 MG Tablet PO (08:37)
[2020-07-24] MEDS: amLODIPine 10 MG Tablet PO (08:37)
[2020-07-24] MEDS: Gabapentin 100 MG Capsule PO (08:37)
[2020-07-24] MEDS: Sertraline 50 MG Tablet PO (08:38)
[2020-07-24] MEDS: Nystatin Powder 15gm Bottle 1 APPLIC TOPICAL ×2 (08:42→21:45)
--- NOTE | 2020-07-24 10:13 | CASEMGMT ---
Addendum entered by Jennyfer Fallon 07/24/20 12:36: Spoke with [facility] whom confirmed acceptance 07/31. Cot transport scheduled 2 pm with Phys[facility]. Original Note: Social Work IDT met with patient and dtr via conference call for Team meeting. Discussed patient's progress in therapy. Pt is mod-max x1 for tx using wall rail, SPT x2, knee pain is limiting. Pt is getting left knee and ankle sintia wrapped to assist with walking. Pt completing 10-12 ft at wall rail, doing better with weight shifting and tolerance. Pt is working on w/c mobility at 50 ft with CGA, x2 for toilet tx, total toileting and LE, set up seated for grooming, max for UE dressing. Pt on minced, moist texture, nectar thick liquids, FFWP, distant supervision, and to check for pocketing. St working on swallowing exercises. Pt reporting increased knee pain. Dr. zarco consult for injection. Explained MMO MC with NRD 07/24. Discussed DC date 07/31. Pt and dtr agreeable. Left message with Paulette at [facility] of DC date. PASRR completed. Will schedule cot transport. Will send for LOC. Plan: DC to [facility] 07/31. Jennyfer Fallon, IT SECURITY ARCHITECT PROTECTIVE SIGNAL REPAIRER
--- NOTE | 2020-07-24 10:59 | PCM.PN.BLA ---
Progress Note late entry for 07/23. Afebrile VSS Maintaining appropriate oxygen saturation on RA Oral intake is good. Much better than prior to the Marinol. Discussed with nursing - no problems that need addressed Reviewed the PT/OT/ST notes Medication list reviewed. Blood sugar record was reviewed. The blood sugars are very well controlled. All lab from 07/15/2020 was reviewed. CBC is unremarkable. Potassium is low at 3.3. BUN is 12 and the creatinine is 0.59. Calcium corrected for hypoalbuminemia is within normal limits. She was able to ambulate 10 ft against the wall rail with max assist of 1 and WC follow. Still requiring max assist of 2 to toilet. She was able to propel the WC for a short distance using the R arm and R leg to propel and guide the WC. She is sleeping well at night. She denies chest pain, shortness of breath, cough, nausea/vomiting/abdominal pain, dysuria, lightheadedness. Her main complaint is pain in her knees and this leads them to buckle when she is weight bearing. Alert, oriented x3, pleasant, her mood is more upbeat than at admission Lungs-clear to auscultation Heart-regular rate and rhythm Abdomen-soft nontender No peripheral edema, no calf tenderness No change in the contact dermatitis in the flanks. Impressions 1. Postop debility 2. Suspected contact dermatitis 3. Dysphagia-diet has been advanced and the patient is tolerating. 4. Persistent severe left side weakness 5. Severe osteoarthritis of the knees-pain is improved with arthritic compounded cream 6. Hypokalemia Supplement potassium Continue therapy Recheck potassium in a few days. STROKE Vital Signs/Narrative: Vital Signs Temp Pulse Resp BP Pulse Ox 07/24/20 08:37 69 07/24/20 08:28 97.9 F 69 16 125/78 H 98 Inpatient E&M: [id number] Subs Hosp L2
--- NOTE | 2020-07-24 11:00 | PCM.PN.BLA ---
Progress Note He was seen on team rounds today. Her daughter Bryanna participated by phone. Afebrile VSS-blood pressure is well controlled Maintaining appropriate oxygen saturation on RA Oral intake is good Having regular bowel movements and denies constipation, abdominal pain or diarrhea. Still incontinent of urine. Discussed with nursing - no problems that need addressed Reviewed the PT/OT/ST notes - every one reports her mood is better and she is trying hard with therapy. Medication list reviewed. Blood sugar record was reviewed and the blood sugars are under good control. She tells me that she had her knees injected in the past and it only helped for a few days and it was very painful. She is afraid of needles and is not crazy or anxious to have her R knee injected again. Alert, pleasant, oriented x3 Lungs-clear to auscultation Heart-regular rate and rhythm without ectopy, no gallop Abdomen-soft, no guarding with palpation, normal bowel sounds present No peripheral edema No calf tenderness Faint macular rash in the flanks-improved. Using Hydrocortisone cream as needed for itching Impressions 1. post stroke debility 2. DM II - well controlled 3. dysphagia 4. OA with BL knee pain and the R knee keyla at times 5. RLS - resolved with Gabapentin at HS 6. Depression/PTSD. 7. Hypokalemia - resolved Check a [facility] and HH now Continue therapy Plan on transition to [facility] next week Obtain BL knee Xray today Start Meloxicam 7.5 mg daily for OA Consider injecting the R knee with steroid - the R knee is bearing all her weight due to the LLE being weak related to the stroke. STROKE Vital Signs/Narrative: Vital Signs Temp Pulse Resp BP Pulse Ox 07/24/20 08:37 69 07/24/20 08:28 97.9 F 69 16 125/78 H 98 Inpatient E&M: [id number] Subs Hosp L2
[2020-07-24 12:00] VITALS: O2SAT 96
[2020-07-24 12:10] LABS: Hematocrit 44.5 % (37-47)
--- NOTE | 2020-07-24 12:38 | RAD_ITS ---
STUDY: X-RAY - RIGHT KNEE REASON FOR EXAM: Female, 69 years old. RIGHT KNEE PAIN. NO RECENT INJURY. TECHNIQUE: 2 view(s) of the knee. COMPARISON: 04/27/2010 FINDINGS: Normal visualized distal femur. Normal visualized proximal tibia and fibula. Normal proximal tibiofibular articulation. Total knee arthroplasty. Normal medial femorotibial compartment. Normal lateral femorotibial compartment. Normal patellofemoral articulation. The soft tissue structures are unremarkable. RAD/Knee 1 or 2 Views IMPRESSION: Total knee arthroplasty Electronically Signed: Pierce Arevalo MD at 20:38 EST , Service support ,
[2020-07-24 12:48] LABS: Anion Gap 7 (5-15); BUN 18 mg/dL (7-18); BUN/Creat Ratio 26.5 RATIO (10-20); Calcium,Total 8.7 mg/dL (8.5-10.1); Chloride 106 mmol/L (98-107); Creatinine, Serum 0.68 mg/dL (0.55-1.02); EST Glomerular Filtration Rate 91 mL/min (>60); Est Glom Filt Rate - Afr Amer 110 mL/min (>60); Estimated Creatinine Clearance 47.78 ml/min; Glucose 123 mg/dL (74-106); Potassium 4.3 mmol/L (3.5-5.1); Sodium Level 140 mmol/L (136-145)
[2020-07-24 14:15] VITALS: BMI 38.9
--- NOTE | 2020-07-24 15:40 | RAD_ITS ---
STUDY: X-RAY - LEFT KNEE REASON FOR EXAM: Female, 69 years old. LEFT KNEE PAIN. NO RECENT INJURY. TECHNIQUE: 2 view(s) of the knee. COMPARISON: None. FINDINGS: Normal visualized distal femur. Normal visualized proximal tibia and fibula. Normal proximal tibiofibular articulation. There is severe degenerative arthrosis of the medial femorotibial compartment with severe joint space narrowing. There is mild degenerative arthrosis of the lateral femorotibial compartment. There is mild degenerative arthrosis of the patellofemoral articulation. The soft tissue structures are unremarkable. RAD/Knee 1 or 2 Views IMPRESSION: Degenerative arthrosis. Electronically Signed: Pierce Arevalo MD at 20:36 EST , Service support ,
[2020-07-24 16:56] LABS: Bedside Glucose 201 mg/dL (70-110)
[2020-07-24 19:07] VITALS: BP 114/76; PULSE 81; RESP 16; TEMP 36.6; O2SAT 96
[2020-07-24] MEDS: Dronabinol 2.5 MG Capsule PO (21:40)
[2020-07-24 21:44] VITALS: PULSE 64
[2020-07-24] MEDS: MELATONIN 3 MG TABLET 6 MG PO (21:44)
[2020-07-24] MEDS: Atorvastatin Calcium 40 MG Tablet PO (21:44)
[2020-07-24] MEDS: Gabapentin 300 MG Capsule PO (21:47)
[2020-07-24 22:00] VITALS: PULSE 69; RESP 16; BMI 38.9
[2020-07-24 23:00] LABS: Bedside Glucose 215 mg/dL (70-110)
[2020-07-25] MEDS: Pantoprazole Sodium 40 MG Tablet PO (06:46)
[2020-07-25] MEDS: Enoxaparin 40 MG/0.4 ML Syringe SC (06:46)
[2020-07-25] MEDS: Acetaminophen 325 MG Tablet 650 MG PO ×3 (06:46→18:13)
[2020-07-25 07:06] LABS: Bedside Glucose 108 mg/dL (70-110)
--- NOTE | 2020-07-25 08:15 | PCM.TXEXTCAR ---
- Diet 07/03/20 18:43 Diet: Cardiac: Calorie-Controlled Food consistency:: Mechanical (Minced/Moist) Liquid Consistency:: [place]/Mildly Thick Type of Dietary Supplement:: Diet Comments: Supervision/assist as needed; Check for pocketing, chin tuck How many daily calories?: 1600 calorie - Routine Orders/Code Status Suppository Type: Dulcolax 10mg Suppository Frequency: Daily PRN Code Status: DNRCC-A - With Intubation. - Wound(s) rt upper chest Wound Type: Abrasion rt and lt ac Wound Type: IV wound - Therapies Weight Bearing: Weight bearing as tolerated Extremity Affected:: Bilateral Lower Physical Therapy: Eval and Treat Occupational Therapy: Eval and Treat Speech Therapy: Eval and Treat - Allergies/Procedures Done in Hospital Allergies/Adverse Reactions: Allergies Penicillins Allergy (Verified 06/15/15 15:47) Hives SODIUM PENTOTHAL Allergy (Uncoded 06/15/15 15:47) Other - Type of Care/Length of Stay Estimated LOS: More Than 30 Days Type of Care Needed: Intermediate Rehab Potential: Fair Prognosis: Good - Additional Orders/Day of Discharge Additional Orders: Part B therapies Day of Discharge: 07/31/20 - Dietary and Speech Recommendations Dietitian Recommendations/Changes: Continue current diet order. Will discontinue ensure pudding w/ meals d/t improved po intake. - Follow Up Care Primary Care Physician: Shaan Sharpe MD [Primary Care Provider] - Please follow up with your Primary Care Physician in: 1 week.
[2020-07-25 08:31] VITALS: PULSE 62
[2020-07-25] MEDS: hydrALAZINE 25 MG Tablet PO ×2 (08:31→19:57)
[2020-07-25] MEDS: Carvedilol 25 MG Tablet PO ×2 (08:31→16:09)
[2020-07-25] MEDS: amLODIPine 10 MG Tablet PO (08:32)
[2020-07-25] MEDS: Gabapentin 100 MG Capsule PO (08:32)
[2020-07-25] MEDS: Lisinopril 40 MG Tablet PO (08:32)
[2020-07-25] MEDS: Sertraline 50 MG Tablet PO (08:33)
[2020-07-25 09:25] VITALS: BP 115/73; PULSE 54; RESP 16; TEMP 36.9; O2SAT 96
[2020-07-25 14:11] VITALS: BMI 38.9
[2020-07-25 15:31] VITALS: O2SAT 96
[2020-07-25 17:06] LABS: Bedside Glucose 111 mg/dL (70-110)
[2020-07-25 19:32] VITALS: BP 127/74; PULSE 58; RESP 16; TEMP 36.6; O2SAT 93
[2020-07-25 19:50] VITALS: BP 145/69; PULSE 62
[2020-07-25 19:57] VITALS: BP 145/69; PULSE 62
[2020-07-25] MEDS: MELATONIN 3 MG TABLET 6 MG PO (19:57)
[2020-07-25] MEDS: Gabapentin 300 MG Capsule PO (19:57)
[2020-07-25] MEDS: Atorvastatin Calcium 40 MG Tablet PO (19:57)
[2020-07-25] MEDS: Dronabinol 2.5 MG Capsule PO (19:58)
[2020-07-25] MEDS: Nystatin Powder 15gm Bottle 1 APPLIC TOPICAL (19:59)
[2020-07-25 21:25] LABS: Bedside Glucose 152 mg/dL (70-110)
--- NOTE | 2020-07-25 21:41 | PCM.PROGNOTE ---
Patient Problems: Active and Suspected Problems Hemorrhagic cerebrovascular accident (CVA) (Acute) 06/20/2020 2.5 cm bleed in the right basal ganglia Dysphagia (Acute) Hemiparesis of left nondominant side (Acute) LUANNE (obstructive sleep apnea) (Suspected) wears O2 at night at 2 LPM which was started at [facility] (Acute) Subjective: Patient seen, examined. She notes some nerve pain, spasms, left lower leg, but it happens mostly at night, already on Gabapentin which is helping. When asked about transferring to [facility], she tells me her daughter is in charge and making the decisions. - Physical Exam Vitals/I&O's: Vital Signs Temp Pulse Resp BP Pulse Ox 97.9 F 62 16 145/69 H 93 07/25/20 19:32 07/25/20 19:57 07/25/20 19:32 07/25/20 19:57 07/25/20 19:32 Oxygen Flow Rate (L/min) 2 Oxygen Delivery Method Room Air Weight: 98.1 kg Body Mass Index (BMI) 38.9 Finger Stick Blood Glucose 193 Intake and Output for Last 24 Hours 07/23/20 07/24/20 07/25/20 23:59 23:59 23:59 Intake Total 1300 / 1300 1200 / 1200 1360 / 1360 Output Total 2100 / 2100 400 / 400 1250 / 1250 Balance -800 / -800 800 / 800 110 / 110 General: Alert, Oriented x3, Cooperative HEENT: Atraumatic, PERRLA, EOMI, Normocephalic Neck: Supple, No JVD, Negative Carotid Bruits Lungs: Clear to auscultation, Normal air movement Cardiovascular: Regular rate, No murmurs Abdomen: Bowel Sounds Present, Soft, Non Tender Extremities: No edema, Capillary Refill Less than 3 Seconds Skin: No rashes, No breakdown Musculoskeletal: No Tenderness to Palpation of Joints or Extremities Neurological: Cranial nerves II-XII grossly intact, - - Dense left hemiplegia. Psych/Mental Status: Normal Affect, Appropriate Laboratory Results 07/24/20 21:42: POC Glucose 215 H 07/25/20 06:32: POC Glucose 108 07/25/20 16:11: POC Glucose 111 H 07/25/20 19:53: POC Glucose 152 H Current Medications Acetaminophen (Acetaminophen 325 Mg Tablet) 650 mg PO Q4H PRN PRN PRN Reason: Pain 1-10 or Fever Last Admin: 07/25/20 18:13 Dose: 650 mg Documented by: Amlodipine Besylate (Amlodipine 10 Mg Tablet) 10 mg PO DAILY [facility] Last Admin: 07/25/20 08:32 Dose: 10 mg Documented by: Atorvastatin Calcium (Atorvastatin Calcium 40 Mg Tablet) 40 mg PO QHS [facility] Last Admin: 07/25/20 19:57 Dose: 40 mg Documented by: Bisacodyl (Bisacodyl 10 Mg Suppository) 10 mg RECTAL .PRN X 1 PRN PRN Reason: Constipation Carvedilol (Carvedilol 25 Mg Tablet) 25 mg PO BIDCM [facility] Last Admin: 07/25/20 16:09 Dose: 25 mg Documented by: Cholecalciferol (Cholecalciferol (Vit D3) 1,000 Unit (25mcg)) 2,000 unit PO DAILY [facility] Last Admin: 07/25/20 08:32 Dose: 2,000 unit Documented by: Compound Med (Arthritis Pain Compound 60 Click Tube) 0 click TOPICAL TID [facility]; Protocol Last Admin: 07/25/20 19:51 Dose: Not Given Documented by: Dronabinol (Dronabinol 2.5 Mg Capsule) 2.5 mg PO QHS [facility] Last Admin: 07/25/20 19:58 Dose: 2.5 mg Documented by: Enoxaparin Sodium (Enoxaparin 40 Mg/0.4 Ml Syringe) 40 mg SC DAILY@0600 [facility] Last Admin: 07/25/20 06:46 Dose: 40 mg Documented by: Gabapentin (Gabapentin 300 Mg Capsule) 300 mg PO QHS [facility] Last Admin: 07/25/20 19:57 Dose: 300 mg Documented by: Gabapentin (Gabapentin 100 Mg Capsule) 100 mg PO 1000 [facility] Last Admin: 07/25/20 08:32 Dose: 100 mg Documented by: Hydralazine HCl (Hydralazine 25 Mg Tablet) 25 mg PO BID [facility] Last Admin: 07/25/20 19:57 Dose: 25 mg Documented by: Hydrocortisone (Hydrocortisone 2.5% Crm) 1 applic TOPICAL BID PRN PRN; Protocol PRN Reason: RASH/TOPICAL IRRITATION Last Admin: 07/22/20 19:47 Dose: 1 applicatio Documented by: Insulin Glargine (Insulin Glargine 100 Units/Ml Pen) 25 units SC QHS [facility] Last Admin: 07/25/20 19:56 Dose: 25 u Documented by: Lisinopril (Lisinopril 40 Mg Tablet) 40 mg PO DAILY [facility] Last Admin: 07/25/20 08:32 Dose: 40 mg Documented by: Magnesium Hydroxide (Magnesium Hydroxide 30 Ml Udc) 30 ml PO .PRN X 1 PRN PRN Reason: Constipation Melatonin (Melatonin 3 Mg Tablet) 6 mg PO QHS [facility] Last Admin: 07/25/20 19:57 Dose: 6 mg Documented by: Nystatin (Nystatin Powder 15gm Bottle) 1 applic TOPICAL BID [facility]; Protocol Last Admin: 07/25/20 19:59 Dose: 1 applicatio Documented by: Pantoprazole Sodium (Pantoprazole Sodium 40 Mg Tablet) 40 mg PO 0600 [facility] Last Admin: 07/25/20 06:46 Dose: 40 mg Documented by: Potassium Chloride (Potassium Chloride 20 Meq Tablet) 20 meq PO DAILYCM [facility] Last Admin: 07/25/20 08:31 Dose: 20 meq Documented by: Senna/Docusate Sodium (Senna/Docusate Sodium 1 Tablet) 2 tablet PO DAILY [facility] Last Admin: 07/25/20 08:32 Dose: Not Given Documented by: Sertraline HCl (Sertraline 50 Mg Tablet) 50 mg PO DAILY [facility] Last Admin: 07/25/20 08:33 Dose: 50 mg Documented by: Capacity - Capacity Assessment Tool Can the patient make a choice & communicate that choice?: Yes Can the patient understand benefits, risks and alternatives?: Yes Can the patient make a logical, rational choice?: Yes Is the choice the patient makes consistent w/ their values?: Yes Is there an impending, emergent risk to the patient?: No Does the patient have an Advance Directive?: Yes Is there a Surrogate Available?: Yes i.e. HCPOA: Yes i.e. close relative (spouse, child, parent, sibling)?: Yes Medical Necessity - Tobacco Use Smoking Status: Never smoker Tobacco Use: Non-smoker Assessment/Plan All Active Problems Hemorrhagic cerebrovascular accident (CVA) (Acute) Dysphagia (Acute) Hemiparesis of left nondominant side (Acute) Thrush (Acute) 69 year old with below past medical history hospitalized for right stroke, dense left hemiplegia admitted to for > 3 hours therapy daily. Debility - PT/OT. Dysphagia - ST. Pain - Tylenol 650MG Q4H PRN pain (1-10), Arthritis compound topical TID. Bowel - Senna/colace 2 tablets daily, MOM 30ML daily PRN, Dulcolax 10MG [place] daily PRN. DVT prophylaxis - Lovenox 40MG SC daily. Hypertension - BP controlled, Coreg 25MG BID, Lisinopril 40MG daily, Amlodipine 10MG daily, Hydralazine 25MG BID. Hyperlipidemia - High intensity Atorvastatin 40MG QHS. Vitamin D deficiency - D3 2000IU daily. Appetite loss - Marinol 2.5MG QHs. Neuropathic pain - Gabapentin 100MG, 300MG QHS. Rash - Hytone 2.5% topical BID PRN. Diabetes Mellitus II - Sugars controlled, Lantus 25 units QHS. Insomnia - Melatonin 6MG QHS. Tinea Corporis - Nystatin powder topical BID. GERD - Pantoprazole 40MG daily. Hypokalemia - K-Dur 20MEQ daily. Depression - Sertraline 50MG daily.
[2020-07-26 01:26] VITALS: BMI 38.9
[2020-07-26] MEDS: Pantoprazole Sodium 40 MG Tablet PO (05:25)
[2020-07-26] MEDS: Enoxaparin 40 MG/0.4 ML Syringe SC (05:25)
[2020-07-26 07:06] LABS: Bedside Glucose 96 mg/dL (70-110)
[2020-07-26] MEDS: Lisinopril 40 MG Tablet PO (07:41)
[2020-07-26] MEDS: Carvedilol 25 MG Tablet PO ×2 (07:41→17:00)
[2020-07-26] MEDS: Gabapentin 100 MG Capsule PO (07:41)
[2020-07-26] MEDS: amLODIPine 10 MG Tablet PO (07:42)
[2020-07-26] MEDS: Senna/Docusate Sodium 1 Tablet 2 TABLET PO (07:42)
[2020-07-26] MEDS: Sertraline 50 MG Tablet PO (07:42)
[2020-07-26 07:44] VITALS: BP 126/62; PULSE 62
[2020-07-26] MEDS: hydrALAZINE 25 MG Tablet PO ×2 (07:44→22:58)
[2020-07-26] MEDS: Nystatin Powder 15gm Bottle 1 APPLIC TOPICAL ×2 (07:53→22:57)
[2020-07-26 09:29] VITALS: BP 126/62; PULSE 50; RESP 16; TEMP 36.6; O2SAT 98
[2020-07-26] MEDS: Gabapentin 100 MG Capsule 200 MG PO (10:23)
[2020-07-26 11:12] VITALS: BMI 38.9
[2020-07-26 16:50] LABS: Bedside Glucose 148 mg/dL (70-110)
[2020-07-26] MEDS: Acetaminophen 325 MG Tablet 650 MG PO (17:00)
[2020-07-26 19:25] VITALS: BP 121/85; PULSE 58; RESP 18; TEMP 36.8; O2SAT 94
--- NOTE | 2020-07-26 20:01 | PN_ITS ---
Patient Problems: Active and Suspected Problems Hemorrhagic cerebrovascular accident (CVA) (Acute) 06/20/2020 2.5 cm bleed in the right basal ganglia Dysphagia (Acute) Hemiparesis of left nondominant side (Acute) LUANNE (obstructive sleep apnea) (Suspected) wears O2 at night at 2 LPM which was started at [facility] (Acute) Subjective: Patient seen, examined. She continues to have nerve pain left lower extremity, otherwise she has no complaints. - Physical Exam Vitals/I&O's: Vital Signs Temp Pulse Resp BP Pulse Ox 98.2 F 58 L 18 121/85 H 94 07/26/20 19:25 07/26/20 19:25 07/26/20 19:25 07/26/20 19:25 07/26/20 19:25 Oxygen Flow Rate (L/min) 2 Oxygen Delivery Method Room Air Weight: 98.1 kg Body Mass Index (BMI) 38.9 Finger Stick Blood Glucose 193 Intake and Output for Last 24 Hours 07/24/20 07/25/20 07/26/20 23:59 23:59 23:59 Intake Total 1200 / 1200 1360 / 1360 1050 / 1050 Output Total 400 / 400 1250 / 1250 1500 / 1500 Balance 800 / 800 110 / 110 -450 / -450 General: Alert, Oriented x3, Cooperative HEENT: Atraumatic, PERRLA, EOMI, Normocephalic Neck: Supple, No JVD, Negative Carotid Bruits Lungs: Clear to auscultation, Normal air movement Cardiovascular: Regular rate, No murmurs Abdomen: Bowel Sounds Present, Soft, Non Tender Extremities: No edema, Capillary Refill Less than 3 Seconds Skin: No rashes, No breakdown Musculoskeletal: No Tenderness to Palpation of Joints or Extremities Neurological: Cranial nerves II-XII grossly intact, - - Dense left hemiplegia. Psych/Mental Status: Normal Affect, Appropriate Laboratory Results 07/25/20 19:53: POC Glucose 152 H 07/26/20 06:58: POC Glucose 96 07/26/20 16:43: POC Glucose 148 H Current Medications Acetaminophen (Acetaminophen 325 Mg Tablet) 650 mg PO Q4H PRN PRN PRN Reason: Pain 1-10 or Fever Last Admin: 07/26/20 17:00 Dose: 650 mg Documented by: Amlodipine Besylate (Amlodipine 10 Mg Tablet) 10 mg PO DAILY [facility] Last Admin: 07/26/20 07:42 Dose: 10 mg Documented by: Atorvastatin Calcium (Atorvastatin Calcium 40 Mg Tablet) 40 mg PO QHS [facility] Last Admin: 07/25/20 19:57 Dose: 40 mg Documented by: Bisacodyl (Bisacodyl 10 Mg Suppository) 10 mg RECTAL .PRN X 1 PRN PRN Reason: Constipation Carvedilol ([facility] 25 Mg Tablet) [facility] Last Admin: 07/26/20 17:00 Dose: 25 mg Documented by: Cholecalciferol (Cholecalciferol (Vit D3) 1,000 Unit (25mcg)) 2,000 unit PO DAILY [facility] Last Admin: 07/26/20 07:41 Dose: 2,000 unit Documented by: Compound Med (Arthritis Pain Compound 60 Click Tube) 0 click TOPICAL TID [facility]; Protocol Last Admin: 07/26/20 13:34 Dose: Not Given Documented by: Dronabinol (Dronabinol 2.5 Mg Capsule) 2.5 mg PO QHS [facility] Last Admin: 07/25/20 19:58 Dose: 2.5 mg Documented by: Enoxaparin Sodium (Enoxaparin 40 Mg/0.4 Ml Syringe) 40 mg SC DAILY@0600 [facility] Last Admin: 07/26/20 05:25 Dose: 40 mg Documented by: Gabapentin (Gabapentin 300 Mg Capsule) 300 mg PO QHS [facility] Last Admin: 07/25/20 19:57 Dose: 300 mg Documented by: Gabapentin (Gabapentin 300 Mg Capsule) 300 mg PO 1000 [facility] Hydralazine HCl (Hydralazine 25 Mg Tablet) 25 mg PO BID [facility] Last Admin: 07/26/20 07:44 Dose: 25 mg Documented by: Hydrocortisone (Hydrocortisone 2.5% Crm) 1 applic TOPICAL BID PRN PRN; Protocol PRN Reason: RASH/TOPICAL IRRITATION Last Admin: 07/22/20 19:47 Dose: 1 applicatio Documented by: Insulin Glargine (Insulin Glargine 100 Units/Ml Pen) 25 units SC QHS [facility] Last Admin: 07/25/20 19:56 Dose: 25 u Documented by: Lisinopril (Lisinopril 40 Mg Tablet) 40 mg PO DAILY [facility] Last Admin: 07/26/20 07:41 Dose: 40 mg Documented by: Magnesium Hydroxide (Magnesium Hydroxide 30 Ml Udc) 30 ml PO .PRN X 1 PRN PRN Reason: Constipation Melatonin (Melatonin 3 Mg Tablet) 6 mg PO QHS [facility] Last Admin: 07/25/20 19:57 Dose: 6 mg Documented by: Nystatin (Nystatin Powder 15gm Bottle) 1 applic TOPICAL BID [facility]; Protocol Last Admin: 07/26/20 07:53 Dose: 1 applicatio Documented by: Pantoprazole Sodium (Pantoprazole Sodium 40 Mg Tablet) 40 mg PO 0600 [facility] Last Admin: 07/26/20 05:25 Dose: 40 mg Documented by: Potassium Chloride (Potassium Chloride 20 Meq Tablet) 20 meq PO DAILYCM [facility] Last Admin: 07/26/20 07:41 Dose: 20 meq Documented by: Senna/Docusate Sodium (Senna/Docusate Sodium 1 Tablet) 2 tablet PO DAILY [facility] Last Admin: 07/26/20 07:42 Dose: 2 tablet Documented by: Sertraline HCl (Sertraline 50 Mg Tablet) 50 mg PO DAILY [facility] Last Admin: 07/26/20 07:42 Dose: 50 mg Documented by: Capacity - Capacity Assessment Tool Can the patient make a choice & communicate that choice?: Yes Can the patient understand benefits, risks and alternatives?: Yes Can the patient make a logical, rational choice?: Yes Is the choice the patient makes consistent w/ their values?: Yes Is there an impending, emergent risk to the patient?: No Does the patient have an Advance Directive?: Yes Is there a Surrogate Available?: Yes i.e. HCPOA: Yes i.e. close relative (spouse, child, parent, sibling)?: Yes Medical Necessity - Tobacco Use Smoking Status: Never smoker Tobacco Use: Non-smoker Assessment/Plan All Active Problems Hemorrhagic cerebrovascular accident (CVA) (Acute) Dysphagia (Acute) Hemiparesis of left nondominant side (Acute) Thrush (Acute) 69 year old with below past medical history hospitalized for right stroke, dense left hemiplegia admitted to for > 3 hours therapy daily. * Debility - PT/OT. * Dysphagia - ST. * Pain - Tylenol 650MG Q4H PRN pain (1-10), Arthritis compound topical TID. * Bowel - Senna/colace 2 tablets daily, MOM 30ML daily PRN, Dulcolax 10MG [place] daily PRN. * DVT prophylaxis - Lovenox 40MG SC daily. * Hypertension - BP controlled, Coreg 25MG BID, Lisinopril 40MG daily, Amlodipine 10MG daily, Hydralazine 25MG BID. * Hyperlipidemia - High intensity Atorvastatin 40MG QHS. * Vitamin D deficiency - D3 2000IU daily. * Appetite loss - Marinol 2.5MG QHs. * Neuropathic pain - Increase Gabapentin to 300MG@1000, 300MG QHS. * Rash - Hytone 2.5% topical BID PRN. * Diabetes Mellitus II - Sugars controlled, Lantus 25 units QHS. * Insomnia - Melatonin 6MG QHS. * Tinea Corporis - Nystatin powder topical BID. * GERD - Pantoprazole 40MG daily. * Hypokalemia - K-Dur 20MEQ daily. * Depression - Sertraline 50MG daily.
[2020-07-26] MEDS: MELATONIN 3 MG TABLET 6 MG PO (22:57)
[2020-07-26] MEDS: Gabapentin 300 MG Capsule PO (22:57)
[2020-07-26] MEDS: Dronabinol 2.5 MG Capsule PO (22:57)
[2020-07-26 22:58] VITALS: BP 121/85; PULSE 56
[2020-07-26] MEDS: Atorvastatin Calcium 40 MG Tablet PO (22:58)
[2020-07-26] MEDS: Arthritis Pain Compound 60 CLICK TUBE TOPICAL (22:58)
[2020-07-27] MEDS: Acetaminophen 325 MG Tablet 650 MG PO ×4 (00:07→17:49)
[2020-07-27] MEDS: Arthritis Pain Compound 60 CLICK TUBE TOPICAL ×3 (06:14→21:57)
[2020-07-27] MEDS: Enoxaparin 40 MG/0.4 ML Syringe SC (06:14)
[2020-07-27] MEDS: Pantoprazole Sodium 40 MG Tablet PO (06:14)
[2020-07-27 07:01] LABS: Bedside Glucose 106 mg/dL (70-110)
[2020-07-27] MEDS: Gabapentin 300 MG Capsule PO ×2 (07:44→21:58)
[2020-07-27] MEDS: Sertraline 50 MG Tablet PO (07:44)
[2020-07-27 07:45] VITALS: PULSE 60
[2020-07-27] MEDS: Carvedilol 25 MG Tablet PO ×2 (07:45→16:55)
[2020-07-27] MEDS: hydrALAZINE 25 MG Tablet PO ×2 (07:45→21:56)
[2020-07-27] MEDS: Lisinopril 40 MG Tablet PO (07:45)
[2020-07-27] MEDS: amLODIPine 10 MG Tablet PO (07:46)
[2020-07-27] MEDS: Nystatin Powder 15gm Bottle 1 APPLIC TOPICAL ×2 (07:48→21:58)
[2020-07-27 07:53] VITALS: BP 116/79; PULSE 60; RESP 16; TEMP 36.8; O2SAT 98
[2020-07-27 14:14] VITALS: BMI 38.9
[2020-07-27 17:06] LABS: Bedside Glucose 146 mg/dL (70-110)
[2020-07-27 20:09] VITALS: BP 119/78; PULSE 58; RESP 16; TEMP 36.8; O2SAT 94
[2020-07-27 21:11] LABS: Bedside Glucose 191 mg/dL (70-110)
[2020-07-27 21:56] VITALS: BP 119/78; PULSE 58
[2020-07-27] MEDS: MELATONIN 3 MG TABLET 6 MG PO (21:56)
[2020-07-27] MEDS: Atorvastatin Calcium 40 MG Tablet PO (21:57)
[2020-07-27] MEDS: Dronabinol 2.5 MG Capsule PO (21:57)
[2020-07-28] MEDS: Acetaminophen 325 MG Tablet 650 MG PO ×4 (00:31→21:31)
[2020-07-28 02:53] VITALS: BMI 38.9
[2020-07-28] MEDS: Arthritis Pain Compound 60 CLICK TUBE TOPICAL ×2 (05:46→21:32)
[2020-07-28] MEDS: Enoxaparin 40 MG/0.4 ML Syringe SC (05:47)
[2020-07-28] MEDS: Pantoprazole Sodium 40 MG Tablet PO (05:47)
[2020-07-28 07:10] LABS: Bedside Glucose 111 mg/dL (70-110)
[2020-07-28] MEDS: Carvedilol 25 MG Tablet PO ×2 (08:35→16:49)
[2020-07-28] MEDS: Gabapentin 300 MG Capsule PO ×2 (08:36→21:32)
[2020-07-28] MEDS: amLODIPine 10 MG Tablet PO (08:36)
[2020-07-28] MEDS: Sertraline 50 MG Tablet PO (08:36)
[2020-07-28] MEDS: Lisinopril 40 MG Tablet PO (08:36)
[2020-07-28] MEDS: Nystatin Powder 15gm Bottle 1 APPLIC TOPICAL ×2 (08:37→21:36)
[2020-07-28 08:38] VITALS: PULSE 72
[2020-07-28] MEDS: hydrALAZINE 25 MG Tablet PO ×2 (08:38→21:32)
[2020-07-28 08:43] VITALS: BP 126/76; PULSE 72; RESP 16; TEMP 36.6; O2SAT 99
[2020-07-28 13:07] VITALS: BMI 38.9
[2020-07-28 16:11] LABS: Bedside Glucose 111 mg/dL (70-110)
[2020-07-28 19:39] VITALS: BP 126/79; PULSE 61; RESP 18; TEMP 36.8; O2SAT 97
[2020-07-28 21:32] VITALS: BP 126/79; PULSE 61
[2020-07-28] MEDS: Atorvastatin Calcium 40 MG Tablet PO (21:32)
[2020-07-28] MEDS: MELATONIN 3 MG TABLET 6 MG PO (21:32)
[2020-07-28] MEDS: Dronabinol 2.5 MG Capsule PO (21:33)
[2020-07-29 06:26] LABS: Bedside Glucose 100 mg/dL (70-110)
[2020-07-29] MEDS: Acetaminophen 325 MG Tablet 650 MG PO ×3 (06:46→18:35)
[2020-07-29] MEDS: Arthritis Pain Compound 60 CLICK TUBE TOPICAL ×3 (06:47→21:29)
[2020-07-29] MEDS: Pantoprazole Sodium 40 MG Tablet PO (06:47)
[2020-07-29] MEDS: Enoxaparin 40 MG/0.4 ML Syringe SC (06:47)
[2020-07-29 07:36] VITALS: BP 125/69; PULSE 51; RESP 16; TEMP 36.7; O2SAT 97
[2020-07-29] MEDS: Lisinopril 40 MG Tablet PO (07:46)
[2020-07-29 07:47] VITALS: PULSE 78
[2020-07-29] MEDS: Carvedilol 25 MG Tablet PO ×2 (07:47→16:25)
[2020-07-29] MEDS: hydrALAZINE 25 MG Tablet PO ×2 (07:47→21:27)
[2020-07-29] MEDS: Sertraline 50 MG Tablet PO (07:48)
[2020-07-29] MEDS: Gabapentin 300 MG Capsule PO ×2 (07:48→21:26)
[2020-07-29] MEDS: amLODIPine 10 MG Tablet PO (07:48)
[2020-07-29 08:33] VITALS: PULSE 60
[2020-07-29 15:50] VITALS: BMI 38.9
--- NOTE | 2020-07-29 16:54 | NURSING ---
Up in recliner, doing well with stand pivot transfers. Left side still flaccid but patient can support weight on LLE with transfers.
[2020-07-29 16:56] LABS: Bedside Glucose 101 mg/dL (70-110)
[2020-07-29 19:29] VITALS: BP 105/66; PULSE 57; RESP 16; TEMP 36.8; O2SAT 97
[2020-07-29 21:00] VITALS: PULSE 57; RESP 16; O2SAT 97; BMI 38.9
[2020-07-29] MEDS: Atorvastatin Calcium 40 MG Tablet PO (21:26)
[2020-07-29 21:27] VITALS: BP 105/66; PULSE 102
[2020-07-29] MEDS: MELATONIN 3 MG TABLET 6 MG PO (21:27)
[2020-07-29] MEDS: Dronabinol 2.5 MG Capsule PO (21:27)
[2020-07-29 22:46] LABS: Bedside Glucose 161 mg/dL (70-110)
[2020-07-30] MEDS: Acetaminophen 325 MG Tablet 650 MG PO ×4 (03:29→22:38)
[2020-07-30] MEDS: Arthritis Pain Compound 60 CLICK TUBE TOPICAL ×3 (05:18→22:38)
[2020-07-30] MEDS: Enoxaparin 40 MG/0.4 ML Syringe SC (05:18)
[2020-07-30] MEDS: Pantoprazole Sodium 40 MG Tablet PO (05:19)
[2020-07-30 07:16] LABS: Bedside Glucose 89 mg/dL (70-110)
[2020-07-30 07:52] VITALS: PULSE 60
[2020-07-30] MEDS: hydrALAZINE 25 MG Tablet PO ×2 (07:52→22:37)
[2020-07-30] MEDS: Carvedilol 25 MG Tablet PO ×2 (07:52→16:21)
[2020-07-30] MEDS: Lisinopril 40 MG Tablet PO (07:53)
[2020-07-30] MEDS: amLODIPine 10 MG Tablet PO (07:53)
[2020-07-30] MEDS: Sertraline 50 MG Tablet PO (07:53)
[2020-07-30] MEDS: Gabapentin 300 MG Capsule PO ×2 (07:54→22:38)
[2020-07-30 08:27] VITALS: BP 134/71; PULSE 60; RESP 18; TEMP 36.3; O2SAT 98
[2020-07-30 15:12] VITALS: BMI 38.9
[2020-07-30 16:35] LABS: Bedside Glucose 188 mg/dL (70-110)
[2020-07-30 19:38] VITALS: BP 108/62; PULSE 60; RESP 17; TEMP 36.2; O2SAT 96
[2020-07-30 22:30] VITALS: PULSE 60; RESP 17; O2SAT 17; BMI 38.9
[2020-07-30 22:37] VITALS: BP 108/62; PULSE 60
[2020-07-30] MEDS: MELATONIN 3 MG TABLET 6 MG PO (22:37)
[2020-07-30] MEDS: Atorvastatin Calcium 40 MG Tablet PO (22:37)
[2020-07-30] MEDS: Dronabinol 2.5 MG Capsule PO (22:38)
[2020-07-31] MEDS: Arthritis Pain Compound 60 CLICK TUBE TOPICAL (05:01)
[2020-07-31] MEDS: Enoxaparin 40 MG/0.4 ML Syringe SC (05:01)
[2020-07-31] MEDS: Pantoprazole Sodium 40 MG Tablet PO (05:01)
[2020-07-31] MEDS: Acetaminophen 325 MG Tablet 650 MG PO ×2 (05:02→09:11)
[2020-07-31 07:06] LABS: Bedside Glucose 118 mg/dL (70-110)
[2020-07-31 07:30] VITALS: BP 122/67; PULSE 54; RESP 16; TEMP 36.6; O2SAT 92
[2020-07-31 08:00] VITALS: BP 122/67; PULSE 54; RESP 16; TEMP 36.6; O2SAT 92
[2020-07-31 08:12] VITALS: PULSE 54
[2020-07-31] MEDS: Carvedilol 25 MG Tablet PO (08:12)
[2020-07-31] MEDS: hydrALAZINE 25 MG Tablet PO (08:12)
[2020-07-31] MEDS: Gabapentin 300 MG Capsule PO (08:13)
[2020-07-31] MEDS: Sertraline 50 MG Tablet PO (08:13)
[2020-07-31] MEDS: amLODIPine 10 MG Tablet PO (08:13)
[2020-07-31] MEDS: Lisinopril 40 MG Tablet PO (08:13)
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
--- NOTE | 2020-07-31 13:16 | NURSING ---
Report called to Marta Peck.
[2020-07-31 13:17] VITALS: BMI 38.9
--- NOTE | 2020-07-31 14:11 | NURSING ---
pt discharged via ambulance transport to [facility]
== END 2020-07-31 14:20 | disposition skilled nursing facility (03) | DRG 57 ==
PROVIDERS: Admitting Provider Internal Medicine; PCP Family Medicine; Visit Provider Internal Medicine
DX: I69.354 Hemiplegia and hemiparesis following cerebral infarction affecting left non-dominant side (principal); I10 Essential (primary) hypertension; G47.33 Obstructive sleep apnea (adult) (pediatric); I69.322 Dysarthria following cerebral infarction; I69.391 Dysphagia following cerebral infarction; R13.10 Dysphagia, unspecified; E78.5 Hyperlipidemia, unspecified; E66.01 Morbid (severe) obesity due to excess calories; E11.9 Type 2 diabetes mellitus without complications; Z68.38 Body mass index [BMI] 38.0-38.9, adult; B37.9 Candidiasis, unspecified; R32 Unspecified urinary incontinence; E55.9 Vitamin D deficiency, unspecified; F32.9 Major depressive disorder, single episode, unspecified; Z62.810 Personal history of physical and sexual abuse in childhood; M17.0 Bilateral primary osteoarthritis of knee; L25.9 Unspecified contact dermatitis, unspecified cause; E87.6 Hypokalemia; G25.81 Restless legs syndrome; K21.9 Gastro-esophageal reflux disease without esophagitis; B35.4 Tinea corporis; F43.12 Post-traumatic stress disorder, chronic
CPT/HCPCS: 36415; 73560; 74230; 80048; 80053; 80061; 81001; 82306; 82570; 82962; 83735; 84100; 84132; 84156; 84439; 84443; 85014; 85018; 85025; 85027; 87426; 92507; 92526; 92610; 92611; 94762; 97110; 97112; 97116; 97140; 97162; 97166; 97530; 97535; 97803; J7030

== ENCOUNTER 2020-08-22 16:42 | Emergency (ER) | payer MEDICARE, SELFPAY ==
[2020-08-22] VITALS (11 sets, daily range): BP systolic 50–120; BP diastolic 15–78; PULSE 84–108; RESP 22–31; TEMP 36.2–38; O2SAT 92–98; BMI 37.0; BMI 37.2
--- NOTE | 2020-08-22 16:49 | EKG12_ITS ---
Test Reason : SOB Blood Pressure : / mmHG Vent. Rate : 090 BPM Atrial Rate : 087 BPM P-R Int : 000 ms QRS Dur : 126 ms QT Int : 376 ms P-R-T Axes : 000 013 -04 degrees QTc Int : 459 ms Atrial fibrillation Right bundle branch block Abnormal ECG Confirmed by JUDE MCCORMICK, SKIP ([id number]), staff editor VELMA JOY ([id number]) on 08/27/2020 11:19:32 AM Referred By: VY Confirmed By:NATALIE ROQUE MD
--- NOTE | 2020-08-22 17:10 | ED.VIS.GEN ---
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 She is currently at the rehab facility for her stroke. She was tested positive for coronavirus 4 days ago. While working with physical therapy she became unresponsive and her heart rate dropped. They checked her oxygen saturation it was in the 50s. She typically wears 3 L of oxygen at baseline. Whenever paramedics arrived her vital signs were improved. On the drive and they state that she was unresponsive for around 4 minutes for them. No CPR was initiated. She is a DNR/CC. At time of arrival to the ED she is alert and oriented. Her only complaint is feeling nauseous. She is not sure when this really started. She denies any significant chest pain or shortness of breath. She has not thrown up. She states that she has not been having normal bowel movements for herself but does not elaborate further. She denies any urinary symptoms. No leg swelling or calf pain. Past Medical History - Allergies and Home Meds Allergies/Adverse Reactions: Allergies Penicillins Allergy (Verified 08/22/20 16:44) Hives SODIUM PENTOTHAL Allergy (Uncoded 08/22/20 16:44) Other Primary Care Physician: Shaan Sharpe MD [Primary Care Provider] - Prior records reviewed: Yes Past Medical History: - - Per HPI Surgical History: total knee arthroplasty - On the right, - - Resection of thyroid nodule, right carpal tunnel release Smoking Status: Never smoker - Family History Maternal Family History: Reports: Diabetes - She has an uncle who had diabetes Review of Systems All systems negative except as indicated General: Reports: Chills. Denies: Fever, Sweats Eyes: Denies: Visual changes - bilaterally, Diplopia ENT: Denies: Rhinorrhea, Sore throat Cardiovascular: Denies: Chest pain, Palpitations Respiratory: Denies: Dyspnea, Cough, Dyspnea on exertion Gastrointestinal: Reports: Nausea. Denies: Abdominal pain, Vomiting, Diarrhea, Melena, Hematochezia Genitourinary: Denies: Dysuria, Hematuria, Frequency Musculoskeletal: Denies: Back pain, Extremity Pain Skin: Denies: Rash, Wounds Neurological: Denies: Headache, Weakness, Numbness Physical Exam Vital Signs/Narrative: Vital Signs Temp Pulse Resp BP Pulse Ox 08/22/20 16:53 31 H 96 08/22/20 16:45 97.1 F L 89 26 H 120/57 L 98 Inital Vital Signs reviewed: Yes General: No Acute Distress Head: Normocephalic, Atraumatic Eyes: Perrl, EOMI ENT: Moist mucous membranes, No rhinorrhea Neck: Supple, Nontender Cardiovascular: Regular rate, Regular rhythm, No murmurs Respiratory: No distress, CTA bilaterally, Chest nontender Abdomen: Soft, Nontender, Nondistended, Normal bowel sounds Back: Nontender, Normal Inspection Extremities: Nontender, No edema Skin: No rash, Pallor Neurological: Alert, Oriented x3, Cranial nerves II-XII grossly intact, - - No movement of left arm or leg which is from her previous stroke Psychological: Normal affect, Normal Mood Diagnostic/Tx/Re-eval - EKG Initial EKG Interpretation: - - Rate of 90 bpm and an irregularly irregular rhythm. Prolonged QRS with a right bundle branch block. No significant ST elevations or depressions otherwise. No T wave abnormalities. - Medical Decision Making Patient presents to the ED for episodes of unresponsiveness and abnormal vital signs. On arrival to the ED she is alert and oriented. She is weaned down off of a facemask to nasal cannula and tolerating this well. Will check basic lab work including EKG, chest x-ray. Her son who is the POA did come outside of the room and he is updated on her care. Patient CT scan was significant for saddle pulmonary embolism. Reports that she did have a intracranial hemorrhage in May. She is not a TPA candidate because of this. I did speak with the transferring center clinic as we do not have capabilities for caring for her here. They did recommend giving a dose of heparin without the bolus. She does have right heart strain with the elevated troponin. She also has transaminitis with elevated white blood cell count. She was treated with prophylactic antibiotics as she was concern for septic initially. Central line was placed. She does have a DNR/CC but she does want full treatment for this. I did contact her POA which is agreement with letter patient was a do. She is alert and oriented answering all questions appropriately so I believe that she can make this decision for herself. 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 Risks associated with procedure include bleeding, pneumothorax, infection. Benefit includes giving the vasopressors safely. Using sterile procedure with gown, mask, sterile gloves after handwashing using ultrasound guidance right IJ central line was placed. Patient placed in Trendelenburg position. Using ultrasound-guided placement Seldinger technique was utilized. Triple lumen catheter was placed with good blood return and flowed easily. Chest x-ray confirmed placement which did appear to be mildly deep but patient not having any ectopy or issues with the line. No evidence of pneumothorax. Patient tolerated procedure well without any apparent complications. It was sutured into place and dressed. ED Disposition - Plan for ED Patient: Disposition: [facility] - Main Diagnosis: Saddle pulmonary embolus, Hypotension, Pneumonia due to Coronavirus disease 2019, Syncope and collapse, Transaminitis Referrals: Shaan Sharpe MD [Primary Care Provider] -
[2020-08-22] MEDS: Ondansetron 4 MG/2 ML Vial IV (17:11)
--- NOTE | 2020-08-22 17:19 | RAD_ITS ---
STUDY: X-RAY CHEST REASON FOR EXAM: Female, 69 years old. hypoxia, COVID positive on 08/16/20 TECHNIQUE: AP portable COMPARISON: 06/20/2020 FINDINGS: The lungs are clear and expanded. There is no demonstrated pleural abnormality. Heart is enlarged. Nonspecific widening of the superior mediastinum and mild asymmetric right hilar prominence.. Normal visualized pulmonary arteries. Normal visualized aortic arch and descending thoracic aorta. Normal visualized thoracic spine. Normal visualized ribs, clavicles, and shoulders. Moderate-sized hiatal hernia is noted There is no demonstrated abnormality of the visualized soft tissue structures of the upper abdomen. RAD/Chest 1 View (Portable) IMPRESSION: ASHD. No acute cardiopulmonary pathology Widening of the superior mediastinum and mild asymmetric right hilar prominence. CT would be helpful to exclude possibility hilar or mediastinal mass if indicated Electronically Signed: Jj Aldana MD at 17:55 EST , Service support ,
[2020-08-22 17:22] LABS: Absolute Lymphocyte Count 1.17 X10^3/uL (0.83-4.51); Absolute Neutrophil Count 16.3 X10^3/uL (2.0-7.7); Basophil# 0.06 X10^3/uL; Basophil% 0.3 % (0-1); Eosinophil# 0.01 X10^3/uL; Eosinophils% 0.1 % (0-5); Hemoglobin 14.6 g/dL (12.0-15.0); Lymphocyte # 1.17 X10^3/ul (4.0); Mean Corp Hgb Conc 31.7 g/dL (32-36); Mean Corpuscular Hgb 30.9 pg (27.0-32.0); Mean Corpuscular Volume 97.3 fL (81-99); Mean Platelet Vol. 10.6 fl (6.2-12.0); Monocyte# 1.49 X10^3/uL; Monocyte% 7.7 % (0-10); NRBC Flagged by Analyzer 0 % (0-5); Neutrophil # 16.31 X10^3/uL (2.7-7.7); Neutrophil % 84.3 % (47-70); Platelet Count 180 K/mm3 (150-450); RBC Distribution Width CV 14.4 % (11.6-14.6); RBC Distribution Width SD 51.8 fl (35.1-43.9); Red Blood Count 4.73 M/mm3 (4.2-5.4); White Blood Count 19.4 K/mm3 (4.4-11.0)
[2020-08-22 17:52] LABS: ALB/GLOB Ratio 0.7 RATIO (0.9-2.4); AST(SGOT) 139 U/L (15-37); Alanine Aminotransfer ALT/SGPT 126 U/L (13-56); Albumin, Serum 2.6 g/dL (3.2-5.0); Alkaline Phosphatase 151 U/L (45-117); Anion Gap 8 (5-15); BUN 34 mg/dL (7-18); BUN/Creat Ratio 26.8 RATIO (10-20); Calcium,Total 7.8 mg/dL (8.5-10.1); Chloride 102 mmol/L (98-107); Creatinine, Serum 1.27 mg/dL (0.55-1.02); EST Glomerular Filtration Rate 44 mL/min (>60); Est Glom Filt Rate - Afr Amer 54 mL/min (>60); Estimated Creatinine Clearance 37.62 ml/min; Globulin 3.9 g/dL (2.2-4.2); Glucose 273 mg/dL (74-106); Potassium 5.1 mmol/L (3.5-5.1); Protein, Total 6.5 g/dL (6.4-8.2); Sodium Level 136 mmol/L (136-145)
[2020-08-22 17:54] LABS: Lactic Acid 3.7 mmol/L (0.4-1.9)
--- NOTE | 2020-08-22 17:57 | CT_ITS ---
We are attempting to reach an attending provider to discuss findings. An addendum with communication details will be sent when the communication is complete. STUDY: CT CHEST WITH CONTRAST REASON FOR EXAM: Female, 69 years old. SEPSIS, MULTIPLE UNRESONSIVE EPISODES, COVID. RADIATION DOSAGE (If Supplied By Facility): CTDIvol = ( 26.65 ) mGy, DLP = ( 609.57 ) mGycm TECHNIQUE: Transaxial imaging was performed following intravenous administration of IV 100mL Isovue-370. Individualized dose optimization techniques were used for this CT. COMPARISON: None. FINDINGS: There is interstitial thickening bilaterally with scattered patchy areas of groundglass opacity most severe in the upper lobes which may be consistent with Covid 19 pneumonia.. There is no demonstrated pleural abnormality. Normal heart and pericardium. Multiple small subcentimeter mediastinal nodes. Normal hilar regions. There is a subtle embolus within the main pulmonary arteries extending into the descending interlobar and segmental branches bilaterally as well as the knee into the proximal branches of the upper lobes. Minor atherosclerotic changes of the aorta without evidence for aneurysm. Dorsal spine demonstrates degenerative change. Small hiatal hernia is noted. Nonspecific fatty infiltration of liver is noted. CT/Chest WITH Contrast IMPRESSION: Findings consistent with extensive pulmonary emboli subtle embolus extending into the upper and lower lobe branches bilaterally. Mild interstitial thickening and findings consistent with Covid 19 pneumonia Electronically Signed: Jj Aldana MD at 21:32 EST , Service support ,
--- NOTE | 2020-08-22 17:58 | CT_ITS ---
STUDY: CT ABDOMEN AND PELVIS WITH CONTRAST REASON FOR EXAM: Female, 69 years old. SEPSIS, MULTIPLE UNRESPONSIVE EPISODES, COVID RADIATION DOSAGE (If Supplied By Facility): CTDIvol = ( 27.00 ) mGy, DLP = ( 1462.12 ) mGycm TECHNIQUE: Transaxial images were obtained from the dome of the diaphragm to the symphysis pubis without oral contrast. IV 100mL Isovue-370 was administered. Sagittal and coronal images were reconstructed. Individualized dose optimization techniques were used for this CT. COMPARISON: None. FINDINGS: There is interstitial thickening seen in both lower lobes.. The visualized portions of the heart are within normal limits. Diffuse fatty infiltration of liver without mass or bile duct dilatation.. Contracted thick-walled gallbladder without calcified stones however there does appear to be trace pericholecystic fluid possibly due to inflammatory disease.. Normal spleen. Normal pancreas. Normal bilateral adrenal glands. There is bilateral renal cortical scarring possibly on the basis of old inflammatory disease. No evidence for hydronephrosis or ureteral calculus. Small bilateral renal cysts are noted Normal visualized stomach. Normal small intestine. Mild diverticular disease of colon without evidence for acute diverticulitis.. No evidence for acute appendicitis.. Atherosclerotic changes of the aorta without evidence for aneurysm.. Normal inferior vena cava. Normal retroperitoneum. Incompletely distended thick-walled bladder containing JONES catheter. Uterus not visualized consistent with hysterectomy Normal abdominal wall. Lumbar spine demonstrates mild degenerative change CT/Abdomen/Pelvis W IV Cont ONLY IMPRESSION: Nonspecific fatty infiltration of liver. Contracted thick-walled gallbladder without calcified stones with minor pericholecystic fluid possibly inflammatory. Ultrasound would be helpful for further evaluation if clinically warranted. Mild diverticular disease of the colon without evidence for acute diverticulitis Other findings as above Electronically Signed: Jj Aldana MD at 21:37 EST , Service support ,
[2020-08-22 18:02] LABS: BNP,B-Type NATRIURETIC PEPTIDE 155.7 pg/mL (0-100)
[2020-08-22] MEDS: 0.9% Normal Saline 1,000 ML 999 ML IV ×3 (18:49→21:56)
[2020-08-22] MEDS: Aspirin 81 MG TAB.CHEW 324 MG PO (18:50)
[2020-08-22 19:10] LABS: Mucous, Urine 0 SEEN /hpf (<or=2+); Red Blood Cells-Urine 0 SEEN /hpf (0-5)
[2020-08-22 19:11] LABS: Color, Urine Yellow (Yellow); Glucose, Dipstick 50 mg/dl (Normal); Ketone-Dipstick Negative (Negative); Leukocyte Esterase-Dipstick 100 /ul (Negative); Nitrite-Dipstick Positive (Negative); Occult Blood-Urine Negative /ul (Negative); Protein-Dipstick Negative (Negative); Specific Gravity, Urine 1.015 (1.002-1.030); Urine Bilirubin Dipstick Negative (Negative); Urine Clarity Clear (Clear); Urine Urobilinogen Normal (Normal)
[2020-08-22 19:18] LABS: Bacteria 1+ /hpf (None Seen); Squamous Epithelial Cells - UA 0-5 SEEN /hpf (5-10); White Blood Cells 0-5 SEEN /hpf (0-5)
[2020-08-22 19:19] LABS: Yeast-Urine 1+ /hpf (None Seen)
[2020-08-22 21:20] LABS: Reflex Lactate? Y
[2020-08-22 22:56] LABS: Lactic Acid 2.4 mmol/L (0.4-1.9)
--- NOTE | 2020-08-22 23:10 | RAD_ITS ---
STUDY: X-RAY CHEST REASON FOR EXAM: Female, 69 years old. Central line placement. TECHNIQUE: Single AP portable view of the chest. COMPARISON: Chest, 08/22/2020 ([id number]). FINDINGS: No right jugular central venous catheter. The tip appears to extend to the left cervical spine suggesting misplacement into the azygos vein. No pneumothorax. Minimally increased density in the right upper lobe when compared to prior study. The lungs are otherwise clear. There is no demonstrated pleural abnormality. Heart and mediastinum are unchanged. No visualized osseous changes. Normal visualized ribs, clavicles, and shoulders. There is no demonstrated abnormality of the visualized soft tissue structures of the upper abdomen. RAD/CXR for Line Placement IMPRESSION: 1. Status post right jugular central venous catheter. Question insertion into the azygos vein. This could could be confirmed with a lateral view. 2. Increased infiltrate in the right upper lobe without other interval change. Electronically Signed: Monroe Levine DO at 23:39 EST Tel [phone], Service support ,
[2020-08-22] MEDS: HEPARIN/D5w 25,000 UNITS 25,000 UNITS/250 ML IV.SOLN. 10 UNITS IV (23:29)
[2020-08-22 23:33] LABS: Partial Thromboplast Time 46.8 Seconds (24.1-36.2)
== END 2020-08-22 23:41 | disposition short-term general hospital (02) ==
PROVIDERS: Emergency Provider Emergency Medicine; PCP Family Medicine
DX: I26.92 Saddle embolus of pulmonary artery without acute cor pulmonale (principal); U07.1 COVID-19; J12.82 Pneumonia due to coronavirus disease 2019; I95.9 Hypotension, unspecified; R55 Syncope and collapse; R74.01 Elevation of levels of liver transaminase levels; R09.02 Hypoxemia; I63.9 Cerebral infarction, unspecified; I69.354 Hemiplegia and hemiparesis following cerebral infarction affecting left non-dominant side; E11.9 Type 2 diabetes mellitus without complications; I10 Essential (primary) hypertension; Z66 Do not resuscitate; Z79.4 Long term (current) use of insulin; Z79.899 Other long term (current) drug therapy
CPT/HCPCS: 36573; 36556; 71045; 71260; 74177; 80053; 81001; 83605; 83880; 84484; 85025; 85730; 87040; 93005; 96365; 96367; 96368; 96375; 99285; J7030; J7040; J7050; Q9967; A4216; J2405